=== PATIENT | male | born 1940 | race Caucasian/White ===

== ENCOUNTER 2016-08-11 08:52 | Outpatient (CLI) | payer MEDICARE, MEDICAID | END 2016-08-11 08:53 | disposition home or self-care (01) | DX: E11.9 Type 2 diabetes mellitus without complications (principal) ==

== ENCOUNTER 2017-02-11 09:53 | Outpatient (CLI) | payer MEDICARE, MEDICAID ==
[2017-02-11 10:28] LABS: BASOPHILS # (AUTO) 0.1 10^3/uL (0.0-0.1); BASOPHILS % (AUTO) 0.7 %; EOSINOPHILS # (AUTO) 0.3 10^3/uL (0.0-0.7); EOSINOPHILS % (AUTO) 3.1 %; HCT - HEMATOCRIT 40.3 % (42.0-52.0); HGB - HEMOGLOBIN 13.6 g/dL (14.0-18.0); LYMPHOCYTES # (AUTO) 1.3 10^3/uL (1.5-3.5); LYMPHOCYTES % (AUTO) 13.8 %; MEAN CORPUSCULAR HEMOGLOBIN 29.3 pg (27.0-31.0); MEAN CORPUSCULAR HGB CONC 33.7 g/dL (32.0-36.0); MEAN CORPUSCULAR VOLUME 86.9 fL (80.0-94.0); MEAN PLATELET VOLUME 7.9 fL (7.4-11.4); MONOCYTES # (AUTO) 0.5 10^3/uL (0.0-1.0); MONOCYTES % (AUTO) 4.9 %; NEUTROPHILS # (AUTO) 7.4 10^3/uL (1.5-6.6); NEUTROPHILS % (AUTO) 77.5 %; RED BLOOD COUNT 4.64 10^6/uL (4.70-6.10); RED CELL DISTRIBUTION WIDTH 14.9 % (12.0-15.0); UNCORRECTED WHITE BLOOD COUNT 9.6 x10^3/uL; WHITE BLOOD COUNT 9.6 x10^3/uL (4.8-10.8)
[2017-02-11 10:30] LABS: BILIRUBIN,URINE NEGATIVE (NEGATIVE)
[2017-02-11 10:49] LABS: HEMOGLOBIN A1C 0.59 g/dL
[2017-02-11 10:55] LABS: ALBUMIN/GLOBULIN RATIO 1.3 (1.0-2.2); BILIRUBIN,TOTAL 0.6 mg/dL (0.2-1.0); BUN - BLOOD UREA NITROGEN 22 mg/dL (6-20); CALCIUM 9.3 mg/dL (8.5-10.3); CARBON DIOXIDE - CO2 25 mmol/L (21-32); CHLORIDE 103 mmol/L (101-111); CHOL/HDL RATIO 2.8 (<5.0); CHOLESTEROL 116 mg/dL; CREATININE 1.3 mg/dL (0.6-1.2); GFR - MDRD 54 (>89); GLUCOSE 101 mg/dL (70-100); HDL CHOLESTEROL 41 mg/dL; LDL/HDL RATIO 1.5 (<3.6); POTASSIUM 5.4 mmol/L (3.5-5.0); SODIUM 136 mmol/L (135-145); TOTAL PROTEIN 7.2 g/dL (6.7-8.2); TRIGLYCERIDES 72 mg/dL; VLDL CHOLESTEROL 14 mg/dL
== END 2017-02-11 09:54 | disposition home or self-care (01) ==
LOC: LAB 09:53
PROVIDERS: ATTEND Nurse Practitioner Family
DX: E11.9 Type 2 diabetes mellitus without complications (principal); E78.5 Hyperlipidemia, unspecified
CPT/HCPCS: 36415; 80053; 80061; 81001; 82043; 82570; 83036; 84443; 85025

== ENCOUNTER 2017-04-17 09:19 | Outpatient (CLI) | payer MEDICARE, MEDICAID ==
--- NOTE | 2017-04-17 11:59 | XRAY Report ---
THREE VIEW RIGHT SHOULDER: 04/17/2017 CLINICAL INDICATION: Pain. FINDINGS: Internal and external rotational views and a scapular Y view of the right shoulder demonst rate degenerative changes of the acromioclavicular and glenohumeral joints. There is no evidence of a cute fracture or dislocation. 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 There is a fracture of the right posterior 9th rib incompletely visualized on this examinatio n. No pneumothorax is evident. IMPRESSION: DEGENERATIVE CHANGES IN THE SHOULDER. FRACTURE OF THE POSTERIOR RIGHT 9TH RIB, WITHOUT E VIDENCE OF PNEUMOTHORAX. JOB #: [id number] EXT JOB #:[id number]
== END 2017-04-17 09:20 | disposition home or self-care (01) ==
LOC: DI 09:19
PROVIDERS: ATTEND Nurse Practitioner Family
DX: M19.011 Primary osteoarthritis, right shoulder (principal); S22.31XA Fracture of one rib, right side, initial encounter for closed fracture

== ENCOUNTER 2017-06-25 07:39 | Outpatient (CLI) | payer MEDICARE, MEDICAID ==
--- NOTE | 2017-06-25 12:20 | MRI Report ---
EXAM: RIGHT SHOULDER MRI WITHOUT CONTRAST EXAM DATE: 06/25/2017 08:33 AM. CLINICAL HISTORY: Right shoulder pain. COMPARISON: Right shoulder radiography from 04/17/2017. TECHNIQUE: Multiplanar, multisequence T1-weighted and fluid-sensitive sequences of the shoulder witho ut contrast. Other: None. FINDINGS: Some of the images are slightly degraded due to patient-related motion artifact. Acromioclavicular Region: The acromion is type I. Mild acromioclavicular joint osteoarthritis. The co racoacromial and coracoclavicular ligaments are intact. Trace amount of fluid at the subacromial-subd eltoid bursa. Glenohumeral Region: No subluxation. No effusion or loose bodies. The articular cartilage is unremark able. The superior and middle glenohumeral ligaments are intact. Slight thickening and slight T2 hype rintense signal of the anterior aspect of the inferior glenohumeral ligament complex. Bone Marrow: No fracture, marrow edema or bone lesions. Labrum: The labrum is unremarkable on this nonarthrographic study. Musculature/Rotator Cuff: There is an approximately 5 x 3 mm low-grade partial thickness articular sweeney rface tear at the distal end of the supraspinatus tendon. The tear involves approximately 10% of the tendon thickness at this location. There is an approximately 4 mm AP by 1 mm superior to inferior par tial thickness bursal surface tear at the distal end of the supraspinatus-infraspinatus tendon juncti on which involves approximately 40% of the tendon thickness at this location. The teres minor tendon is unremarkable. There is subscapularis tendinosis. No edema or fatty atrophy. Biceps Tendon: The long head of the biceps tendon and biceps abram are intact. Other: The subcutaneous tissues are unremarkable. IMPRESSION: 1. Slight thickening and slight T2 hyperintense signal of the anterior aspect of the inferior glenohu meral ligament complex which may represent inflammation or injury. 2. Small 5 x 3 mm low-grade partial thickness articular surface tear at the distal end of the suprasp inatus tendon. Small 4 x 1 mm moderate grade partial thickness bursal surface tear at the distal end of the supraspinatus-infraspinatus tendon junction. 3. Mild acromioclavicular joint osteoarthritis. [facility] MUSCULOSKELET[facility] RADIOLOGY SECTION Referring Provider Line: [phone] SITE ID: [id number]
== END 2017-06-25 07:40 | disposition home or self-care (01) ==
LOC: DI 07:39
PROVIDERS: ATTEND Orthopaedic Surgery
DX: M75.101 Unspecified rotator cuff tear or rupture of right shoulder, not specified as traumatic (principal); M19.011 Primary osteoarthritis, right shoulder

== ENCOUNTER 2017-08-17 08:00 | Outpatient (CLI) | payer MEDICARE, MEDICAID ==
[2017-08-17 20:34] LABS: HB2 TOTAL 14.7 g/dL; HEMOGLOBIN A1C 0.62 g/dL
== END 2017-08-17 08:01 | disposition home or self-care (01) ==
LOC: LAB.S 08:00
PROVIDERS: ATTEND Nurse Practitioner Family
DX: E11.9 Type 2 diabetes mellitus without complications (principal)
CPT/HCPCS: 36415; 83036

== ENCOUNTER 2017-08-19 11:32 | Outpatient (CLI) | payer MEDICARE, MEDICAID ==
--- NOTE | 2017-08-19 15:06 | XRAY Report ---
TWO VIEW CHEST: 08/19/2017 COMPARISON: Two view chest 07/17/2010. INDICATION: COPD. TECHNIQUE: Two views. FINDINGS: There are large lung volumes. Otherwise clear lungs. No pneumothorax or pleural effusion. There are remote left rib fractures - healed. Stable cardiomegaly. IMPRESSION: COPD. NO ACUTE FINDINGS. TD: 08/19/2017 15:[facility]
== END 2017-08-19 11:33 | disposition home or self-care (01) ==
LOC: DI.S 11:32
PROVIDERS: ATTEND Nurse Practitioner Family
DX: J44.9 Chronic obstructive pulmonary disease, unspecified (principal)
CPT/HCPCS: 71046; 93005

== ENCOUNTER 2017-08-20 09:56 | Outpatient (CLI) | payer MEDICARE, MEDICAID ==
[2017-08-20 17:34] LABS: BASOPHILS % (AUTO) 0.5 %; EOSINOPHILS # (AUTO) 0.3 10^3/uL (0.0-0.7); EOSINOPHILS % (AUTO) 4.9 %; HGB - HEMOGLOBIN 13.1 g/dL (14.0-18.0); LYMPHOCYTES # (AUTO) 1.4 10^3/uL (1.5-3.5); LYMPHOCYTES % (AUTO) 19.6 %; MEAN CORPUSCULAR HEMOGLOBIN 28.4 pg (27.0-31.0); MEAN CORPUSCULAR HGB CONC 32.4 g/dL (32.0-36.0); MEAN CORPUSCULAR VOLUME 87.9 fL (80.0-94.0); MEAN PLATELET VOLUME 8.4 fL (7.4-11.4); MONOCYTES # (AUTO) 0.5 10^3/uL (0.0-1.0); MONOCYTES % (AUTO) 7.4 %; NEUTROPHILS # (AUTO) 4.7 10^3/uL (1.5-6.6); NEUTROPHILS % (AUTO) 67.6 %; PLT - PLATELET COUNT 213 10^3/uL (130-450); RED CELL DISTRIBUTION WIDTH 14.5 % (12.0-15.0); WHITE BLOOD COUNT 6.9 x10^3/uL (4.8-10.8)
[2017-08-20 17:46] LABS: ALBUMIN 3.9 g/dL (3.2-5.5); ALBUMIN/GLOBULIN RATIO 1.2 (1.0-2.2); BILIRUBIN,TOTAL 0.4 mg/dL (0.2-1.0); CREATININE 1.3 mg/dL (0.6-1.2); TOTAL PROTEIN 7.2 g/dL (6.7-8.2)
== END 2017-08-20 09:57 | disposition home or self-care (01) ==
LOC: LAB.F 09:56
PROVIDERS: ATTEND Nurse Practitioner Family
DX: E11.9 Type 2 diabetes mellitus without complications (principal); D64.9 Anemia, unspecified
CPT/HCPCS: 36415; 80053; 85025

== ENCOUNTER 2017-09-28 06:02 | Inpatient (IN) | payer MEDICARE, MEDICAID ==
[2017-09-28] MEDS ORDERED: ceFAZolin 2 GM/50 ML 2 GM/50 ML BAG IV ONE (06:38)
[2017-09-28] MEDS ORDERED: LACTATED RINGERS 1,000 ML IV ONE ×2 (07:13→08:56)
[2017-09-28] MEDS ORDERED: SODIUM CHLORIDE FLUSH 0.9% 10 ML SYRINGE ONE ×2 (08:04→08:06)
[2017-09-28] MEDS ORDERED: ePHEDrine 50 MG/ML VIAL IVP ONE (08:20)
[2017-09-28] MEDS ORDERED: GLYCOPYRROLATE 1 MG/5 ML VIAL IVP ONE (08:20)
[2017-09-28] MEDS ORDERED: PROPOFOL 200 MG/20 ML VIAL IVP ONE (08:20)
[2017-09-28] MEDS ORDERED: MIDAZOLAM 2 MG/2 ML VIAL IVP ONE (08:20)
[2017-09-28] MEDS ORDERED: LIDOCAINE-MPF 2% 5 ML VIAL IM ONE (08:20)
[2017-09-28] MEDS ORDERED: SUCCINYLCHOLINE 200 MG/10 ML VIAL IVP ONE (08:20)
[2017-09-28] MEDS ORDERED: ONDANSETRON 4 MG/2 ML VIAL IVP ONE (08:20)
[2017-09-28] MEDS ORDERED: NEOSTIGMINE 1 MG/1 ML 10 ML MDV IVP ONE (08:20)
[2017-09-28] MEDS ORDERED: ROCURONIUM 50 MG/5 ML VIAL IVP ONE (08:20)
[2017-09-28] MEDS ORDERED: KETOROLAC 30 MG/ML VIAL IVP ONE (08:20)
[2017-09-28] MEDS ORDERED: DEXAMETHASONE 4 MG/ML VIAL IVP ONE (08:20)
[2017-09-28] MEDS ORDERED: BUPIVACAINE 0.5%-EPI 1:200000 PF 30 ML VIAL SUBQ ONE ×2 (08:30)
[2017-09-28] MEDS ORDERED: BUPIVACAINE 0.5%-EPI 1:200000 PF 30 ML VIAL ONE (08:37)
[2017-09-28] MEDS ORDERED: ALBUTEROL NEB 2.5 MG/3 ML INH ONE (10:38)
[2017-09-28] MEDS ORDERED: ALBUTEROL NEB 2.5 MG/3 ML INH SCH (11:00)
--- NOTE | 2017-09-28 13:18 | XRAY Report ---
FRONTAL CHEST: 09/28/2017 CLINICAL INDICATION: Postop, crackles. COMPARISON: 08/19/2017. FINDINGS: Frontal view of the chest demonstrates a normal cardiac silhouette. There are new right greater than left infiltrates present. No pulmonary vascular congestion is seen. No effusion or pneumothorax is present. IMPRESSION: NEW RIGHT GREATER THAN LEFT INFILTRATES. TD: 09/28/2017 13:17
[2017-09-28] MEDS ORDERED: ONDANSETRON 4 MG/2 ML VIAL IVP PRN (14:25)
[2017-09-28] MEDS ORDERED: SODIUM CHLORIDE FLUSH 0.9% 10 ML SYRINGE IVP PRN (14:25)
[2017-09-28] MEDS ORDERED: IPRATROPIUM/ALBUTEROL 3 ML NEB INH PRN (14:33)
[2017-09-28] MEDS ORDERED: ALBUTEROL NEB 2.5 MG/3 ML INH PRN (14:33)
[2017-09-28 14:38] LABS: BASOPHILS % (AUTO) 0.5 %; HGB - HEMOGLOBIN 12.3 g/dL (14.0-18.0); LYMPHOCYTES # (AUTO) 0.3 10^3/uL (1.5-3.5); LYMPHOCYTES % (AUTO) 3.4 %; MEAN CORPUSCULAR HEMOGLOBIN 29.3 pg (27.0-31.0); MEAN CORPUSCULAR HGB CONC 33.4 g/dL (32.0-36.0); MEAN CORPUSCULAR VOLUME 87.8 fL (80.0-94.0); MONOCYTES # (AUTO) 0.2 10^3/uL (0.0-1.0); MONOCYTES % (AUTO) 2.1 %; NEUTROPHILS # (AUTO) 8.5 10^3/uL (1.5-6.6); PLT - PLATELET COUNT 194 10^3/uL (130-450); RED BLOOD COUNT 4.18 10^6/uL (4.70-6.10); RED CELL DISTRIBUTION WIDTH 14.4 % (12.0-15.0)
--- NOTE | 2017-09-28 14:45 | HISTORY & PHYSICAL EXAMINATION ---
Chief Complaint - Chief Complaint Chief Complaint: difficult to breath History - Past Medical History Cardiovascular: reports: Hypertension, High cholesterol, Arrhythmia Respiratory: reports: COPD, Other Neuro: reports: None Endocrine/Autoimmune: reports: Type 2 diabetes, Other GI: reports: Colon polyps, Hepatitis : reports: Benign prostate hypertrophy, Retention, Nocturia, Frequency HEENT: reports: Chronic vision loss, Other Psych: reports: None Musculoskeletal: reports: Osteoarthritis Derm: reports: None MRSA Hx?: No - Past Surgical History General: reports: Colonoscopy, Other Ortho: reports: Other Meds/Allgy - Home Medications Home Medications: Ambulatory Orders Medication Instructions Recorded Confirmed Aspirin [Aspir 81] 81 mg ORAL DAILY 11/11/13 09/28/17 Losartan [Cozaar] 50 mg ORAL DAILY 11/11/13 09/28/17 amLODIPine [Norvasc] 10 mg ORAL DAILY 11/11/13 09/28/17 Atorvastatin Calcium 40 mg PO QPM 04/22/16 09/28/17 metFORMIN [Glucophage] 500 mg PO BIDWM 04/22/16 09/28/17 Albuterol Sulfate [Proair Hfa 1 - 2 puffs INH Q4H PRN 09/21/17 09/28/17 Inhaler] Doxazosin Mesylate 8 mg PO DAILY PM 09/21/17 09/28/17 Metoprolol Succinate 150 mg PO DAILY 09/21/17 09/28/17 Umeclidinium [place] [Incruse 1 puffs IH DAILY 09/21/17 09/28/17 Ellipta] - Allergies Allergies/Adverse Reactions: Allergies Allergy/AdvReac Type Severity Reaction Status Date / Time No Known Drug Allergies Allergy Verified 09/21/17 10:43 Exam - Vital Signs Vital Signs: Vital Signs x48h Temp Pulse Resp BP Pulse Ox 09/28/17 14:10 36.2 C L 100 16 164/89 H 93 09/28/17 13:30 36.2 C L 86 16 147/82 H 96 09/28/17 13:00 87 18 138/65 H 95 09/28/17 12:30 36.2 C L 82 18 138/65 H 92 09/28/17 11:50 36.1 C L 85 16 132/69 H 93 09/28/17 11:30 36.1 C L 86 16 138/65 H 92 09/28/17 11:00 89 L 04/23/18 10:45 90 L 09/28/17 10:30 91 19 92 09/28/17 10:15 92 09/28/17 10:10 98 09/28/17 10:05 97 09/28/17 10:00 90 L 09/28/17 09:57 92 Conclusion/Plan - Lab Results Fish Bones: 09/28/17 14:33
[2017-09-28 14:55] LABS: ALBUMIN 3.8 g/dL (3.2-5.5); ALBUMIN/GLOBULIN RATIO 1.2 (1.0-2.2); BILIRUBIN,TOTAL 0.4 mg/dL (0.2-1.0); CALCIUM 8.6 mg/dL (8.5-10.3); CREATININE 1.2 mg/dL (0.6-1.2); MAGNESIUM 1.7 mg/dL (1.7-2.8); TOTAL PROTEIN 7.1 g/dL (6.7-8.2)
--- NOTE | 2017-09-28 15:55 | CONSULTATION NOTE ---
Referring Provider Name of Referring Provider:: Dr. Graham Consult Date: 09/28/17 Chief Complaint - Chief Complaint Chief Complaint: difficult to breath History of Present Illness - Admitted From Admitted From:: PACU - History Obtained From History obtained from: pt - History of Present Illness HPI Comment/Other: Mr. Dowling is 77-year-old male, current cigarette smoker with hx of COPD, HTN , DM2, who had right shoulder impingement repair procedure at [id number], developed difficult breath after the procedure. I was called by Dr. Hanna to consult pt for difficult breath. Pt report to me " I am difficult to breath down." Pt denies fever, chill, sickness before procedure, also denies chest pain , palpitation, headache. Pt had 93% Sats at 4 liter of O2. In the physical examination, pt present bilateral wheezing sound at low lobe, right greater than left. pt denies hx of Asthma. I ordered CBC, CMP, CXR to assess the pt. It appears pt has COPD exacerbation or further pneumonia. History - Past Medical History Cardiovascular: reports: Hypertension, High cholesterol, Arrhythmia Respiratory: reports: COPD, Other Neuro: reports: None Endocrine/Autoimmune: reports: Type 2 diabetes, Other GI: reports: Colon polyps, Hepatitis : reports: Benign prostate hypertrophy, Retention, Nocturia, Frequency HEENT: reports: Chronic vision loss, Other Psych: reports: None Musculoskeletal: reports: Osteoarthritis Derm: reports: None MRSA Hx?: No - Past Surgical History General: reports: Colonoscopy, Other Ortho: reports: Other - Substance History Use: Uses substance without health or social issues: Tobacco Dependence: Experiences withdrawal or developed tolerances: Tobacco Meds/Allgy - Home Medications Home Medications: Ambulatory Orders Medication Instructions Recorded Confirmed Aspirin [Aspir 81] 81 mg ORAL DAILY 11/11/13 09/28/17 Losartan [Cozaar] 50 mg ORAL DAILY 11/11/13 09/28/17 amLODIPine [Norvasc] 10 mg ORAL DAILY 11/11/13 09/28/17 Atorvastatin Calcium 40 mg PO QPM 04/22/16 09/28/17 metFORMIN [Glucophage] 500 mg PO BIDWM 04/22/16 09/28/17 Albuterol Sulfate [Proair Hfa 1 - 2 puffs INH Q4H PRN 09/21/17 09/28/17 Inhaler] Doxazosin Mesylate 8 mg PO DAILY PM 09/21/17 09/28/17 Metoprolol Succinate 150 mg PO DAILY 09/21/17 09/28/17 Umeclidinium [place] [Incruse 1 puffs IH DAILY 09/21/17 09/28/17 Ellipta] - Allergies Allergies/Adverse Reactions: Allergies Allergy/AdvReac Type Severity Reaction Status Date / Time No Known Drug Allergies Allergy Verified 09/21/17 10:43 Review of Systems - Constitutional Constitutional: denies: Fatigue, Fever, Chills, Malaise, Weakness, Poor appetite , Diaphoresis, Night sweats - Eyes Eyes: denies: Pain, Irritation, Amaurosis, Blurred vision, Spots in vision, Field loss, Vision loss, Dipolpia - Ears, Nose & Throat Ears, Nose & Throat: denies: Ear pain, Hearing loss, Hearing aids, Tinnitus, Vertigo, Nasal pain, Nasal discharge, Nosebleeds, Nasal obstruction, Nasal congestion, Postnasal drainage, Dentures, Sore throat, Mouth lesions, Bleeding gums - Cardiovascular Cariovascular: denies: Irregular heart rate, Palpitations, Chest pain, Edema, Lightheadedness, Syncope, Exertional dyspnea, Decr. exercise tolerance - Respiratory Respiratory: reports: Wheezing, SOB with exertion. denies: Cough, Sputum production, Snoring, Hemoptysis, Orthopnea, SOB at rest, Apnea, Stridor, Pleuritic pain - Gastrointestinal Gastrointestinal: denies: Abdominal pain, Abdominal distention, Constipation, Diarrhea, Change in bowel habits, Rectal bleeding, Black stools, Bloody stools, Nausea, Vomiting, Bile emesis, Braydon blood emesis, Coffee grounds emesis, Reflux /heartburn, Bloating - Genitourinary Genitourinary: denies: Dysuria, Frequency, Urgency, Hematuria, Incontinence, Flank pain, Nocturia, Urethral discharge - Musculoskeletal Musculoskeletal: denies: Muscle pain, Back pain, Muscle aches, Stiffness, Limited range of motion, Muscle weakness, Gout, Joint pain - Integumentary Integumentary: denies: Rash, Pruritis, Lesions, Dryness, Lumps, Acne, Pigment changes - Neurological Neurological: denies: General weakness, Focal weakness, Numbness, Pre-existing deficit, Abnormal gait, Seizures, Incoordination, Slurred speech - Psychiatric Psychiatric: denies: Depression, Anxiety, Suicidal, Delusions, Hallucinations, Homicidal - Endocrine Endocrine: denies: Polyuria, Polydypsia, Polyphagia, Intolerance to cold - Hematologic/Lymphatic Hematologic/Lymphatic: denies: Anemia, Bruising, Petechiae, Blood clots, Lymphadenopathy, Bleeding tendencies Exam - Vital Signs Reviewed Vital Signs: Yes Vital Signs: Vital Signs x48h Temp Pulse Pulse Resp BP BP Pulse Ox 09/28/17 15:03 36.4 C L 86 16 156/77 H 93 09/28/17 14:40 36.3 C L 84 16 152/80 H 94 09/28/17 14:10 36.2 C L 100 16 164/89 H 93 09/28/17 13:30 36.2 C L 86 16 147/82 H 96 09/28/17 13:00 87 18 138/65 H 95 09/28/17 12:30 36.2 C L 82 18 138/65 H 92 09/28/17 11:50 36.1 C L 85 16 132/69 H 93 09/28/17 11:30 36.1 C L 86 16 138/65 H 92 09/28/17 11:00 89 L 09/28/17 10:45 90 L 09/28/17 10:30 91 19 92 09/28/17 10:15 92 09/28/17 10:10 98 09/28/17 10:05 97 09/28/17 10:00 90 L 09/28/17 09:57 92 - Physical Exam General Appearance: positive: Alert, Mild distress. negative: Lethargic Eyes Bilateral: positive: Normal inspection, PERRL, No lid inflammation, Conjunctivae nml ENT: positive: ENT inspection nml, Pharynx nml, No signs of dehydration. negative: Purulent nasal drainage, Pharyngeal erythema, Oral lesions Neck: positive: Nml inspection, Thyroid nml, No JVD, Trachea midline. negative : Thyromegaly, Lymphadenopathy (R), Lymphadenopathy (L), Stiff neck, Carotid bruit, Swelling/bruising, Tracheal deviation Respiratory: positive: Chest non-tender, No respiratory distress, Wheezes. negative: Rales, Rhonchi Cardiovascular: positive: Regular rate & rhythm, No murmur, No gallop. negative : Irregularly irregular, Extrasystoles, Tachycardia, Bradycardia, Systolic murmur, Diastolic murmur Peripheral Pulses: positive: 2+ Abdomen: positive: Non-tender, No organomegaly, Nml bowel sounds, No distention. negative: Tenderness, Guarding, Rebound Back: positive: Nml inspection. negative: CVA tenderness (R), CVA tenderness (L ) Skin: positive: Color nml, No rash, Warm, Dry. negative: Cyanosis, Diaphoresis , Pallor Extremities: positive: Non-tender, Full ROM. negative: Calf tenderness, Joint swelling, J Luis's sign/cords Neurologic/Psychiatric: positive: Oriented x3, Sensation nml, Mood/affect nml. negative: Weakness, Sensory loss, Facial droop, Slurred/abnml speech, Depressed mood/affect Conclusion/Plan - Diagnosis Diagnosis: COPD exacerbation. 1, order CBC,CMP,CXR, follow up. 2, Duoneb, Albuteral INH Q4H PRN. 3, supplement O2 PRN, consult RT. 4, Solu-medro 30 mg Tid. 5, follow up CXR to see if pt has pneumonia. 6, order EKG since pt has hx of arrhythmia. thank Dr. Graham let us care of this pt. - Lab Results Fish Bones: 09/28/17 14:33 09/28/17 14:33
[2017-09-28 15:57] LABS: HB2 TOTAL 13.3 g/dL; HEMOGLOBIN A1C 0.56 g/dL
[2017-09-28] MEDS ORDERED: cefTRIAXone 1 GM VIAL IVP SCH (16:58)
[2017-09-28] MEDS ORDERED: amLODIPine 5 MG TABLET PO SCH (17:00)
[2017-09-28] MEDS: NICOTINE 14 MG PATCH TOP SCH (17:40)
[2017-09-28] MEDS: SODIUM CHLORIDE 0.9% 1,000 ML IV SCH (17:40)
[2017-09-28] MEDS: METOPROLOL SUCCINATE 50 MG TABLET PO SCH (17:42)
[2017-09-28] MEDS: LOSARTAN 50 MG TABLET PO SCH (17:44)
[2017-09-28] MEDS: AZITHROMYCIN INJ 500 MG in SODIUM CHLORIDE 0.9% 250 ML IV SCH (17:45)
[2017-09-28] MEDS: methylPREDNISolone SUCCINATE 40 MG/ML VIAL IVP SCH ×2 (17:46→21:46)
[2017-09-28] MEDS: INSULIN ASPART 300 UNIT/3 ML PEN SUBQ SCH ×2 (17:55→20:43)
[2017-09-28] MEDS: SODIUM CHLORIDE FLUSH 0.9% 10 ML SYRINGE IVP SCH (17:57)
[2017-09-28] MEDS: cefTRIAXone 1 GM in SODIUM CHLORIDE 0.9% MINIBAG 100 ML IV SCH (19:47)
[2017-09-28] MEDS: ATORVASTATIN 40 MG TABLET PO SCH (20:40)
[2017-09-28] MEDS: FAMOTIDINE 20 MG TABLET PO SCH (20:40)
[2017-09-28] MEDS: DOXAZOSIN 4 MG TABLET PO SCH (20:41)
[2017-09-28] MEDS: amLODIPine 5 MG TABLET PO SCH (20:41)
[2017-09-29] MEDS: SODIUM CHLORIDE FLUSH 0.9% 10 ML SYRINGE IVP SCH ×3 (01:31→16:38)
[2017-09-29 05:20] LABS: BASOPHILS % (AUTO) 0.3 %; HGB - HEMOGLOBIN 11.3 g/dL (14.0-18.0); LYMPHOCYTES # (AUTO) 0.6 10^3/uL (1.5-3.5); MEAN CORPUSCULAR HEMOGLOBIN 28.4 pg (27.0-31.0); MEAN CORPUSCULAR HGB CONC 32.5 g/dL (32.0-36.0); MEAN CORPUSCULAR VOLUME 87.4 fL (80.0-94.0); MEAN PLATELET VOLUME 7.4 fL (7.4-11.4); MONOCYTES # (AUTO) 0.6 10^3/uL (0.0-1.0); MONOCYTES % (AUTO) 5.3 %; NEUTROPHILS # (AUTO) 10.3 10^3/uL (1.5-6.6); NEUTROPHILS % (AUTO) 89.4 %; PLT - PLATELET COUNT 199 10^3/uL (130-450); RED BLOOD COUNT 3.99 10^6/uL (4.70-6.10); RED CELL DISTRIBUTION WIDTH 14.7 % (12.0-15.0); WHITE BLOOD COUNT 11.5 x10^3/uL (4.8-10.8)
[2017-09-29 05:32] LABS: ALBUMIN 3.5 g/dL (3.2-5.5); ALBUMIN/GLOBULIN RATIO 1.3 (1.0-2.2); BILIRUBIN,TOTAL 0.3 mg/dL (0.2-1.0); CALCIUM 8.4 mg/dL (8.5-10.3); TOTAL PROTEIN 6.3 g/dL (6.7-8.2)
[2017-09-29] MEDS: methylPREDNISolone SUCCINATE 40 MG/ML VIAL IVP SCH ×3 (07:07→21:13)
[2017-09-29] MEDS: MORPHINE 2 MG/ML SYRINGE IVP PRN (07:07)
--- NOTE | 2017-09-29 07:40 | PROVIDER PROGRESS NOTE ---
Subjective - General Admit Date: 09/28/17 Procedure Date: 09/28/17 Post Op Days: 1 Procedure Performed: right shouilder jerry, sub acromial decompression. - Other Other Information/Narrative: Right shoulder pain with active motion., Objective - Patient Data Weight: Weight 09/27/17 09/28/17 09/29/17 23:59 23:59 23:59 Weight (kg) 94.3 kg Intake & Output: Intake and Output Totals x24h 09/27/17 09/28/17 09/29/17 23:59 23:59 23:59 Intake Total 356.25 Output Total 700 Balance 356.25 -700 - Lab Results Lab Results: 09/29/17 05:08 09/29/17 05:08 Other Lab Results: Lab Results x24hrs 09/29/17 09/29/17 09/29/17 Range/Units 07:34 05:08 05:08 WBC 11.5 H (4.8-10.8) x10^3/uL RBC 3.99 L (4.70-6.10) 10^6/uL Hgb 11.3 L (14.0-18.0) g/dL Hct 34.9 L (42.0-52.0) % MCV 87.4 (80.0-94.0) fL MCH 28.4 (27.0-31.0) pg MCHC 32.5 (32.0-36.0) g/dL RDW 14.7 (12.0-15.0) % Plt Count 199 (130-450) 10^3/uL MPV 7.4 (7.4-11.4) fL Neut # 10.3 H (1.5-6.6) 10^3/uL Lymph # 0.6 L (1.5-3.5) 10^3/uL Dougherty # 0.6 (0.0-1.0) 10^3/uL Eos # 0.0 (0.0-0.7) 10^3/uL Baso # 0.0 (0.0-0.1) 10^3/uL Absolute Nucleated RBC 0.00 x10^3/uL Nucleated RBC % 0.0 /100WBC Sodium 136 (135-145) mmol/L Potassium 4.5 (3.5-5.0) mmol/L Chloride 104 (101-111) mmol/L Carbon Dioxide 27 (21-32) mmol/L Anion Gap 5.0 L (6-13) BUN 19 (6-20) mg/dL Creatinine 1.0 (0.6-1.2) mg/dL Estimated GFR (MDRD) 73 L (>89) Glucose 141 H (70-100) mg/dL POC Whole Bld Glucose 146 H (70 - 100) mg/dL Glycated Hemoglobin (4.6-6.2) % Estim Average Glucose (70-100) Calcium 8.4 L (8.5-10.3) mg/dL Magnesium (1.7-2.8) mg/dL Total Bilirubin 0.3 (0.2-1.0) mg/dL AST 23 (10-42) IU/L ALT 17 (10-60) IU/L Alkaline Phosphatase 59 (42-121) IU/L Troponin I (<0.49) ng/mL Total Protein 6.3 L (6.7-8.2) g/dL Albumin 3.5 (3.2-5.5) g/dL Globulin 2.8 (2.1-4.2) g/dL Albumin/Globulin Ratio 1.3 (1.0-2.2) 09/28/17 09/28/17 09/28/17 Range/Units 20:24 17:45 16:34 WBC (4.8-10.8) x10^3/uL RBC (4.70-6.10) 10^6/uL Hgb (14.0-18.0) g/dL Hct (42.0-52.0) % MCV (80.0-94.0) fL MCH (27.0-31.0) pg MCHC (32.0-36.0) g/dL RDW (12.0-15.0) % Plt Count (130-450) 10^3/uL MPV (7.4-11.4) fL Neut # (1.5-6.6) 10^3/uL Lymph # (1.5-3.5) 10^3/uL Dougherty # (0.0-1.0) 10^3/uL Eos # (0.0-0.7) 10^3/uL Baso # (0.0-0.1) 10^3/uL Absolute Nucleated RBC x10^3/uL Nucleated RBC % /100WBC Sodium (135-145) mmol/L Potassium (3.5-5.0) mmol/L Chloride (101-111) mmol/L Carbon Dioxide (21-32) mmol/L Anion Gap (6-13) BUN (6-20) mg/dL Creatinine (0.6-1.2) mg/dL Estimated GFR (MDRD) (>89) Glucose (70-100) mg/dL POC Whole Bld Glucose 144 H 151 H (70 - 100) mg/dL Glycated Hemoglobin (4.6-6.2) % Estim Average Glucose (70-100) Calcium (8.5-10.3) mg/dL Magnesium (1.7-2.8) mg/dL Total Bilirubin (0.2-1.0) mg/dL AST (10-42) IU/L ALT (10-60) IU/L Alkaline Phosphatase (42-121) IU/L Troponin I < 0.04 (<0.49) ng/mL Total Protein (6.7-8.2) g/dL Albumin (3.2-5.5) g/dL Globulin (2.1-4.2) g/dL Albumin/Globulin Ratio (1.0-2.2) 09/28/17 09/28/17 09/28/17 Range/Units 14:41 14:33 14:33 WBC (4.8-10.8) x10^3/uL RBC (4.70-6.10) 10^6/uL Hgb (14.0-18.0) g/dL Hct (42.0-52.0) % MCV (80.0-94.0) fL MCH (27.0-31.0) pg MCHC (32.0-36.0) g/dL RDW (12.0-15.0) % Plt Count (130-450) 10^3/uL MPV (7.4-11.4) fL Neut # (1.5-6.6) 10^3/uL Lymph # (1.5-3.5) 10^3/uL Dougherty # (0.0-1.0) 10^3/uL Eos # (0.0-0.7) 10^3/uL Baso # (0.0-0.1) 10^3/uL Absolute Nucleated RBC x10^3/uL Nucleated RBC % /100WBC Sodium 133 L (135-145) mmol/L Potassium 4.0 (3.5-5.0) mmol/L Chloride 98 L (101-111) mmol/L Carbon Dioxide 28 (21-32) mmol/L Anion Gap 7.0 (6-13) BUN 19 (6-20) mg/dL Creatinine 1.2 (0.6-1.2) mg/dL Estimated GFR (MDRD) 59 L (>89) Glucose 158 H (70-100) mg/dL POC Whole Bld Glucose 147 H (70 - 100) mg/dL Glycated Hemoglobin 6.0 (4.6-6.2) % Estim Average Glucose 126 H (70-100) Calcium 8.6 (8.5-10.3) mg/dL Magnesium 1.7 (1.7-2.8) mg/dL Total Bilirubin 0.4 (0.2-1.0) mg/dL AST 23 (10-42) IU/L ALT 18 (10-60) IU/L Alkaline Phosphatase 67 (42-121) IU/L Troponin I (<0.49) ng/mL Total Protein 7.1 (6.7-8.2) g/dL Albumin 3.8 (3.2-5.5) g/dL Globulin 3.3 (2.1-4.2) g/dL Albumin/Globulin Ratio 1.2 (1.0-2.2) 09/28/17 09/28/17 Range/Units 14:33 10:06 WBC 9.0 (4.8-10.8) x10^3/uL RBC 4.18 L (4.70-6.10) 10^6/uL Hgb 12.3 L (14.0-18.0) g/dL Hct 36.7 L (42.0-52.0) % MCV 87.8 (80.0-94.0) fL MCH 29.3 (27.0-31.0) pg MCHC 33.4 (32.0-36.0) g/dL RDW 14.4 (12.0-15.0) % Plt Count 194 (130-450) 10^3/uL MPV 7.0 L (7.4-11.4) fL Neut # 8.5 H (1.5-6.6) 10^3/uL Lymph # 0.3 L (1.5-3.5) 10^3/uL Dougherty # 0.2 (0.0-1.0) 10^3/uL Eos # 0.0 (0.0-0.7) 10^3/uL Baso # 0.0 (0.0-0.1) 10^3/uL Absolute Nucleated RBC 0.00 x10^3/uL Nucleated RBC % 0.0 /100WBC Sodium (135-145) mmol/L Potassium (3.5-5.0) mmol/L Chloride (101-111) mmol/L Carbon Dioxide (21-32) mmol/L Anion Gap (6-13) BUN (6-20) mg/dL Creatinine (0.6-1.2) mg/dL Estimated GFR (MDRD) (>89) Glucose (70-100) mg/dL POC Whole Bld Glucose 142 H (70 - 100) mg/dL Glycated Hemoglobin (4.6-6.2) % Estim Average Glucose (70-100) Calcium (8.5-10.3) mg/dL Magnesium (1.7-2.8) mg/dL Total Bilirubin (0.2-1.0) mg/dL AST (10-42) IU/L ALT (10-60) IU/L Alkaline Phosphatase (42-121) IU/L Troponin I (<0.49) ng/mL Total Protein (6.7-8.2) g/dL Albumin (3.2-5.5) g/dL Globulin (2.1-4.2) g/dL Albumin/Globulin Ratio (1.0-2.2) - Current Medications Current Medications: Current Medications Generic Name Dose Route Start Last Admin Trade Name Freq PRN Reason Stop Dose Admin Amlodipine Besylate 10 mg 09/28/17 17:00 09/28/17 20:41 Norvasc PO 10 mg QPM JAMI Administration Atorvastatin Calcium 40 mg 09/28/17 21:00 09/28/17 20:40 Lipitor PO 40 mg QPM JAMI Administration Doxazosin Mesylate 8 mg 09/28/17 21:00 09/28/17 20:41 Cardura PO 8 mg QPM JAMI Administration Famotidine 20 mg 09/28/17 21:00 09/28/17 20:40 Pepcid PO 20 mg BID JAMI Administration Azithromycin 500 mg/ Sodium 250 mls @ 250 mls/hr 09/28/17 17:00 09/28/17 18: 45 Chloride IV Infused Q24H JAMI Infusion Sodium Chloride 1,000 mls @ 75 mls/hr 09/28/17 17:00 09/28/17 21:45 Normal Saline 0.9% IV 75 mls/hr .[id number] JAMI Infusion Ceftriaxone Sodium 1 gm/ 100 mls @ 200 mls/hr 09/28/17 18:00 09/28/17 20:17 Sodium Chloride IV Infused Q24H JAMI Infusion Insulin Aspart 1 - 5 unit 09/28/17 17:00 09/28/17 20:43 Novolog SUBQ 1 unit 0800,1200,1700,2100 JAMI Administration Protocol Losartan Potassium 50 mg 09/28/17 17:00 09/28/17 17:44 Cozaar PO 50 mg DAILY JAMI Administration Methylprednisolone 30 mg 09/28/17 16:00 09/29/17 07:07 Solu-Medrol (40mg Vial) IVP 30 mg TID JAMI Administration Metoprolol Succinate 150 mg 09/28/17 17:00 09/28/17 17:42 Toprol Xl PO 150 mg DAILY JAMI Administration Morphine Sulfate 2 mg 09/28/17 14:25 09/29/17 07:07 Morphine IVP 2 mg Q2H PRN Administration Pain 8 to 10 Nicotine 1 patch 09/28/17 17:00 09/28/17 17:40 Nicoderm TOP 1 patch DAILY JAMI Administration Sodium Chloride 10 ml 09/28/17 14:25 09/29/17 07:07 Normal Saline Flush 0.9% IVP 10 ml PRN PRN Administration NEEDED PER PROVIDER ORDERS Sodium Chloride 10 ml 09/28/17 17:00 09/29/17 01:31 Normal Saline Flush 0.9% IVP Not Given 0100,0900,1700 JAMI - Physical Exam Comments/Other: NV intact. Dressing with moderate bloody drainage. Impression/Plan - Problem List Problem List: Orthopedically expected course. Will return to apply fresh dressing tomorrow.
--- NOTE | 2017-09-29 10:07 | XRAY Report ---
TWO VIEW CHEST: 09/28/2017 CLINICAL INDICATION: Shortness of breath. COMPARISON: 09/28/2017 at 1203 hours. FINDINGS: The cardiac silhouette is within normal limits. Right greater than left infiltrates persist. No effusion or pneumothorax is seen. IMPRESSION: PERSISTENT RIGHT GREATER THAN LEFT INFILTRATES. TD: 09/29/2017 10:06
[2017-09-29] MEDS: ENOXAPARIN 40 MG/0.4 ML SYRINGE SUBQ SCH (10:30)
[2017-09-29] MEDS: POLYETHYLENE GLYCOL 3350 17 GM PACKET PO SCH (10:30)
[2017-09-29] MEDS: METOPROLOL SUCCINATE 50 MG TABLET PO SCH (10:30)
[2017-09-29] MEDS: FAMOTIDINE 20 MG TABLET PO SCH ×2 (10:30→21:13)
[2017-09-29] MEDS: LOSARTAN 50 MG TABLET PO SCH (10:30)
[2017-09-29] MEDS: NICOTINE 14 MG PATCH TOP SCH (10:30)
[2017-09-29] MEDS: ASPIRIN EC 81 MG TABLET PO SCH (10:31)
[2017-09-29] MEDS: INSULIN ASPART 300 UNIT/3 ML PEN SUBQ SCH ×4 (10:31→21:18)
[2017-09-29] MEDS: SODIUM CHLORIDE 0.9% 1,000 ML IV SCH (10:38)
[2017-09-29] MEDS: ACETAMINOPHEN 325 MG TABLET PO PRN ×2 (13:15→18:24)
--- NOTE | 2017-09-29 14:43 | PROVIDER PROGRESS NOTE ---
Assessment/Plan - Problem List (1) Right lower lobe pneumonia Qualifiers: Aspiration pneumonia type: unspecified Assessment/Plan: As per most recent chest x-ray that was completed on 09/28/17, patient is noted to have bilateral infiltrates right greater than left. The patient had a mild elevation in WBC count from 9.0 upon admission, now up to 11.5. He has not had complaints of a productive cough, although nursing staff has been unable to wean his oxygen at 3L per nasal cannula. He continues to be dependent on tobacco with little interest of quitting. Plan: Treat with ongoing IV antibiotics and repeat labs for AM. Encourage incentive spirometry, IV steroids and nebulizers. (2) Tobacco dependence Assessment/Plan: The patient is noted to be a life long smoker, and denies marijuana use or other inhalants. Plan: Offer nicotine patch and encourage cessation. (3) COPD (chronic obstructive pulmonary disease) Qualifiers: COPD type: COPD with acute lower respiratory infection Qualified Code(s): J44.0 - Chronic obstructive pulmonary disease with acute lower respiratory infection Assessment/Plan: Patient demonstrates moderate COPD disease and is now dependent on oxygen. This may be due to progressive nature of COPD, verses acute PNA. Plan: Continue to treat pneumonia and evaluate for home oxygen upon discharge. (4) Hypertension Qualifiers: Hypertension type: essential hypertension Qualified Code(s): I10 - Essential (primary) hypertension Assessment/Plan: The patient takes losartan, norvasc, metoprolol and doxazosin at home. Plan: Continue current meds, and monitor vital signs. (5) Internal impingement of right shoulder Assessment/Plan: Patient is now post-op for a right shoulder impingement repair. He remains in a sling, and dressings to his anterior right shoulder. Dr. Graham- Orthosurgery is following and managing this. Plan: Continue current treatment as per ortho, treat pain. - Current Meds Current Meds: Current Medications Generic Name Dose Route Start Last Admin Trade Name Freq PRN Reason Stop Dose Admin Acetaminophen 650 mg 09/28/17 14:25 09/29/17 13:15 Tylenol PO 650 mg Q4HR PRN Administration Pain 1 to 4 Amlodipine Besylate 10 mg 09/28/17 17:00 09/28/17 20:41 Norvasc PO 10 mg QPM JAMI Administration Aspirin 81 mg 09/29/17 09:00 09/29/17 10:31 Ecotrin PO 81 mg DAILY JAMI Administration Atorvastatin Calcium 40 mg 09/28/17 21:00 09/28/17 20:40 Lipitor PO 40 mg QPM JAMI Administration Doxazosin Mesylate 8 mg 09/28/17 21:00 09/28/17 20:41 Cardura PO 8 mg QPM JAMI Administration Enoxaparin Sodium 40 mg 09/29/17 09:00 09/29/17 10:30 Lovenox SUBQ 40 mg DAILY JAMI Administration Famotidine 20 mg 09/28/17 21:00 09/29/17 10:30 Pepcid PO 20 mg BID JAMI Administration Azithromycin 500 mg/ Sodium 250 mls @ 250 mls/hr 09/28/17 17:00 09/28/17 18: 45 Chloride IV Infused Q24H JAMI Infusion Sodium Chloride 1,000 mls @ 75 mls/hr 09/28/17 17:00 09/29/17 10:38 Normal Saline 0.9% IV 75 mls/hr .[id number] JAMI Administration Ceftriaxone Sodium 1 gm/ 100 mls @ 200 mls/hr 09/28/17 18:00 09/28/17 20:17 Sodium Chloride IV Infused Q24H JAMI Infusion Insulin Aspart 1 - 5 unit 09/28/17 17:00 09/29/17 13:18 Novolog SUBQ Not Given 0800,1200,1700,2100 [facility] Protocol Losartan Potassium 50 mg 09/28/17 17:00 09/29/17 10:30 Cozaar PO 50 mg DAILY JAMI Administration Methylprednisolone 30 mg 09/28/17 16:00 09/29/17 14:34 Solu-Medrol (40mg Vial) IVP 30 mg TID JAMI Administration Metoprolol Succinate 150 mg 09/28/17 17:00 09/29/17 10:30 Toprol Xl PO 150 mg DAILY JAMI Administration Morphine Sulfate 2 mg 09/28/17 14:25 09/29/17 07:07 Morphine IVP 2 mg Q2H PRN Administration Pain 8 to 10 Nicotine 1 patch 09/28/17 17:00 09/29/17 10:30 Nicoderm TOP Not Given DAILY JAMI Polyethylene Glycol 17 gm 09/29/17 09:00 09/29/17 10:30 Miralax PO 17 gm DAILY JAMI Administration Sodium Chloride 10 ml 09/28/17 14:25 09/29/17 07:07 Normal Saline Flush 0.9% IVP 10 ml PRN PRN Administration NEEDED PER PROVIDER ORDERS Sodium Chloride 10 ml 09/28/17 17:00 09/29/17 09:56 Normal Saline Flush 0.9% IVP Not Given 0100,0900,1700 JAMI - Lab Result Lab results reviewed: Yes Fish Bone Diagrams: 09/29/17 05:08 09/29/17 05:08 - EKG Results EKG Interpreted Independently: Yes - Diagnostic Imaging Results Diagnostic Imaging Results: Final report reviewed Diagnostic Imaging Results Comments: TWO VIEW CHEST: 09/28/2017 CLINICAL INDICATION: Shortness of breath. COMPARISON: 09/28/2017 at 1203 hours. FINDINGS: The cardiac silhouette is within normal limits. Right greater than left infiltrates persist. No effusion or pneumothorax is seen. IMPRESSION: PERSISTENT RIGHT GREATER THAN LEFT INFILTRATES. - Additional Planning Condition/Complexity: Stable My Orders: My Active Orders 09/29/17 CUL, RESPIRATORY [RM] Routine 09/29/17 14:10 Admit [Admit \ Transfer \ Status] [RC] .ONCE Consult/Specialty: Surgery Plan Discussed with:: Patient Time Spent: 15-30 minutes Subjective - Subjective Patient Reports: No Complaints (Patient states he would rather be at home.) Nursing Reports: No Complaints Objective Vital Signs: Vital Signs - 24 hr 09/28/17 09/28/17 09/29/17 15:03 16:15 07:30 Temperature 36.4 C L 36.5 C Heart Rate 92 Heart Rate [ 86 82 Brachial] Respiratory 16 16 18 Rate Blood Pressure 156/77 H 158/82 H [Left Brachial artery] O2 Saturation 93 95 Oxygen O2 Source Nasal cannula I&O (Last 24 Hrs): Intake and Output Totals x24h 09/27/17 09/28/17 09/29/17 23:59 23:59 23:59 Intake Total 356.25 1746.25 Output Total 700 Balance 356.25 1046.25 General: Alert, Oriented x3, Cooperative HEENT: Atraumatic, PERRLA Neck: Supple, No JVD Lymphatic: no adenopathy, axilla node tender (R) Neuro: Alert, CN 2-12 Grossly Intact, Oriented Times 3 Cardiovascular: Regular rate, Normal S1, Normal S2 Respiratory: Chest non-tender, Wheezes, Rhonchi (more rhonchi in lower right lung base.) Abdomen: Normal bowel sounds, Soft, No tenderness, No masses Extremities: No clubbing, No cyanosis, No edema, No tenderness/swelling Skin: No rashes, No breakdown, No significant lesion - Results Results: Laboratory Results WBC 11.5 x10^3/uL (4.8-10.8) H 09/29/17 05:08 RBC 3.99 10^6/uL (4.70-6.10) L 09/29/17 05:08 Hgb 11.3 g/dL (14.0-18.0) L 09/29/17 05:08 Hct 34.9 % (42.0-52.0) L 09/29/17 05:08 MCV 87.4 fL (80.0-94.0) 09/29/17 05:08 MCH 28.4 pg (27.0-31.0) 09/29/17 05:08 MCHC 32.5 g/dL (32.0-36.0) 09/29/17 05:08 RDW 14.7 % (12.0-15.0) 09/29/17 05:08 Plt Count 199 10^3/uL (130-450) 09/29/17 05:08 MPV 7.4 fL (7.4-11.4) 09/29/17 05:08 Neut # 10.3 10^3/uL (1.5-6.6) H 09/29/17 05:08 Lymph # 0.6 10^3/uL (1.5-3.5) L 09/29/17 05:08 [place] # 0.6 10^3/uL (0.0-1.0) 09/29/17 05:08 Eos # 0.0 10^3/uL (0.0-0.7) 09/29/17 05:08 Baso # 0.0 10^3/uL (0.0-0.1) 09/29/17 05:08 Absolute Nucleated RBC 0.00 x10^3/uL 09/29/17 05:08 Nucleated RBC % 0.0 /100WBC 09/29/17 05:08 Sodium 136 mmol/L (135-145) 09/29/17 05:08 Potassium 4.5 mmol/L (3.5-5.0) 09/29/17 05:08 Chloride 104 mmol/L (101-111) 09/29/17 05:08 Carbon Dioxide 27 mmol/L (21-32) 09/29/17 05:08 Anion Gap 5.0 (6-13) L 09/29/17 05:08 BUN 19 mg/dL (6-20) 09/29/17 05:08 Creatinine 1.0 mg/dL (0.6-1.2) 09/29/17 05:08 Estimated GFR (MDRD) 73 (>89) L 09/29/17 05:08 Glucose 141 mg/dL (70-100) H 09/29/17 05:08 POC Whole Bld Glucose 146 mg/dL (70 - 100) H 09/29/17 07:34 Glycated Hemoglobin 6.0 % (4.6-6.2) 09/28/17 14:33 Estim Average Glucose 126 (70-100) H 09/28/17 14:33 Calcium 8.4 mg/dL (8.5-10.3) L 09/29/17 05:08 Magnesium 1.7 mg/dL (1.7-2.8) 09/28/17 14:33 Total Bilirubin 0.3 mg/dL (0.2-1.0) 09/29/17 05:08 AST 23 IU/L (10-42) 09/29/17 05:08 ALT 17 IU/L (10-60) 09/29/17 05:08 Alkaline Phosphatase 59 IU/L (42-121) 09/29/17 05:08 Troponin I < 0.04 ng/mL (<0.49) 09/28/17 17:45 Total Protein 6.3 g/dL (6.7-8.2) L 09/29/17 05:08 Albumin 3.5 g/dL (3.2-5.5) 09/29/17 05:08 Globulin 2.8 g/dL (2.1-4.2) 09/29/17 05:08 Albumin/Globulin Ratio 1.3 (1.0-2.2) 09/29/17 05:08
[2017-09-29] MEDS: AZITHROMYCIN INJ 500 MG in SODIUM CHLORIDE 0.9% 250 ML IV SCH (16:37)
[2017-09-29] MEDS: cefTRIAXone 1 GM in SODIUM CHLORIDE 0.9% MINIBAG 100 ML IV SCH (18:24)
[2017-09-29] MEDS: amLODIPine 5 MG TABLET PO SCH (21:13)
[2017-09-29] MEDS: DOXAZOSIN 4 MG TABLET PO SCH (21:13)
[2017-09-29] MEDS: ATORVASTATIN 40 MG TABLET PO SCH (21:13)
[2017-09-30] MEDS: MORPHINE 2 MG/ML SYRINGE IVP PRN (00:02)
[2017-09-30] MEDS: SODIUM CHLORIDE 0.9% 1,000 ML IV SCH ×2 (01:15→13:38)
[2017-09-30 04:43] LABS: BASOPHILS # (AUTO) 0.1 10^3/uL (0.0-0.1); BASOPHILS % (AUTO) 0.4 %; HGB - HEMOGLOBIN 11.6 g/dL (14.0-18.0); LYMPHOCYTES # (AUTO) 0.8 10^3/uL (1.5-3.5); LYMPHOCYTES % (AUTO) 6.3 %; MEAN CORPUSCULAR HEMOGLOBIN 29.3 pg (27.0-31.0); MEAN CORPUSCULAR HGB CONC 33.6 g/dL (32.0-36.0); MEAN CORPUSCULAR VOLUME 87.2 fL (80.0-94.0); MEAN PLATELET VOLUME 7.8 fL (7.4-11.4); MONOCYTES # (AUTO) 0.5 10^3/uL (0.0-1.0); MONOCYTES % (AUTO) 4.3 %; PLT - PLATELET COUNT 192 10^3/uL (130-450); RED BLOOD COUNT 3.97 10^6/uL (4.70-6.10); RED CELL DISTRIBUTION WIDTH 14.8 % (12.0-15.0); WHITE BLOOD COUNT 12.3 x10^3/uL (4.8-10.8)
[2017-09-30 04:50] LABS: ALBUMIN 3.5 g/dL (3.2-5.5); ALBUMIN/GLOBULIN RATIO 1.2 (1.0-2.2); BILIRUBIN,TOTAL 0.3 mg/dL (0.2-1.0); CALCIUM 8.5 mg/dL (8.5-10.3); TOTAL PROTEIN 6.5 g/dL (6.7-8.2)
[2017-09-30] MEDS: methylPREDNISolone SUCCINATE 40 MG/ML VIAL IVP SCH ×2 (06:45→13:43)
[2017-09-30] MEDS: SODIUM CHLORIDE FLUSH 0.9% 10 ML SYRINGE IVP SCH ×2 (06:47→13:43)
[2017-09-30 07:34] VITALS: BP 177/81
[2017-09-30] MEDS: POLYETHYLENE GLYCOL 3350 17 GM PACKET PO SCH (09:34)
[2017-09-30] MEDS: NICOTINE 14 MG PATCH TOP SCH (09:34)
[2017-09-30] MEDS: FAMOTIDINE 20 MG TABLET PO SCH (09:34)
[2017-09-30] MEDS: ASPIRIN EC 81 MG TABLET PO SCH (09:34)
[2017-09-30] MEDS: LOSARTAN 50 MG TABLET PO SCH (09:34)
[2017-09-30] MEDS: METOPROLOL SUCCINATE 50 MG TABLET PO SCH (09:34)
[2017-09-30] MEDS: INSULIN ASPART 300 UNIT/3 ML PEN SUBQ SCH ×2 (09:35→11:37)
[2017-09-30] MEDS: ENOXAPARIN 40 MG/0.4 ML SYRINGE SUBQ SCH (09:35)
--- NOTE | 2017-09-30 11:38 | Discharge Plan ---
Discharge Plan Disposition: Home, Self Care Condition: Good Prescriptions: Albuterol Sulfate [Proventil Hfa Inhaler] 1 - 2 puffs INH Q4H PRN #1 inhaler PRN Reason: Shortness Of Air/Wheezing Amoxicillin 1,000 mg PO TID 10 Days #60 capsule Azithromycin 500 mg PO DAILY 10 Days #10 tablet Budesonide/Formoterol Fumarate [Symbicort 160-4.5 Mcg Inhaler] 10.2 gm IH DAILY #1 hfa.aer.ad Guaifenesin [Mucinex] 600 mg PO BID #40 tab.er.12h Nicotine 14 mg Patch [Nicoderm] 1 patch TOP DAILY 14 Days #14 patch oxyCODONE/ACET 5/325 [Percocet 5 mg/325 mg] 1 each PO Q4H PRN #42 tablet PRN Reason: Pain Prednisone 10 mg PO DAILY #29 tab.ds.pk Diet: Regular Activity Restrictions: Activity as Tolerated Shower Restrictions: No Driving Restrictions: Yes Weight Bearing: Full Weight Instruction Topics: Dextromethorphan Guaifenesin capsules and ER tablets, Azithromycin tablets, Amoxicillin capsules or tablets, Pneumonia Additional Instructions or Follow Up instructions: You originally came into the hospital for a right shoulder impingement repair. You developed pneumonia and required oxygen. A walking oxygen saturation test was completed and is pending. You should continue your antibiotics and see your PCP within one week. Rest when you are tired. If you qualify for home oxygen, you should NEVER smoke while using. No Smoking: If you smoke, Please STOP! Call for help. Follow-up with: Simi Clarke ARNP [Primary Care Provider] -
--- NOTE | 2017-09-30 13:19 | DISCHARGE SUMMARY ---
Discharge Summary Admit Date: 09/28/17 Discharge Date: 09/30/17 Discharging Provider: RADHA Oquendo Primary Care Provider: RADHA Pérez Code Status: Attempt Resuscitation Condition at Discharge: Good Discharge Disposition: 01 Home, Self Care - DIAGNOSES Admission Diagnoses: Chronic obstructive pulmonary disease with (acute) exacerbation (J44.1) Essential (primary) hypertension (I10) Type 2 diabetes mellitus without complications (E11.9) Nicotine dependence, unspecified, uncomplicated (F17.200) Discharge Diagnoses with Status of Each Condition: COPD exacerbation (J44.1)- chronic, stable, home oxygen prescribed. COPD (J44.9)- chronic, stable. HTN (hypertension) (I10)- chronic, stable. DM2 (diabetes mellitus, type 2) (E11.9)- chronic, stable. Tobacco dependence (F17.200)- chronic, encouraged cessation. Right lower lobe pneumonia (J18.1)- new on this admit, treatment to continue. Internal impingement of right shoulder (M75.41)- chronic, now post-op. 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 He was admitted directly for a repair of his right shoulder by orthopedic surgery. Unfortunately, he developed a post -op complication of pneumonia and required oxygen. The hospitalist service was consulted to manage medically. - HOSPITAL COURSE Hospital Course: The following diagnoses were prevalent during this hospital stay: (1) Right lower lobe pneumonia- As per most recent chest x-ray that was completed on 09/28/17, patient is noted to have bilateral infiltrates right greater than left. The patient had a mild elevation in WBC count from 9.0 upon admission, now up to 11.5. He has not had complaints of a productive cough, although nursing staff has been unable to wean his oxygen at 3L per nasal cannula. He continues to be dependent on tobacco with little interest of quitting. The patient was treated with ongoing IV antibiotics that were transitioned to PO form for an additional 10 days, with a probiotic for a preventative. The patient was encouraged to use incentive spirometry, was given IV steroids with a Prednisone taper and nebulizers that were switched to home dosed inhalers. (2) Tobacco dependence- The patient is noted to be a life long smoker, and denies marijuana use or other inhalants. The patient was offered nicotine patch and encouraged cessation, but states that he can do it on his own. (3) COPD (chronic obstructive pulmonary disease)- Patient demonstrates moderate COPD disease and is now dependent on oxygen. This may be due to progressive nature of COPD, verses acute PNA. The patient was treated for pneumonia and it was determined that the patient should use supplemental oxygen with ambulation. A [id number] exam was completed and resuluts of his walking oxygen saturation test were explained. The patient was hypoxic with ambulation , on room air with an oxygen saturation of 86%, with exertion on 3 liters his oxygen saturation were 91% at 200 feet. I am ordering home oxygen at 3L per nasal cannula with ambulation to treat his long standing COPD. He was reminded and encouraged to quit smoking, but denies the use of a nicotine patch. (4) Hypertension- The patient takes losartan, norvasc, metoprolol and doxazosin at home. The patient was continued on current home meds, and his monitor vital signs were monitored. (5) Internal impingement of right shoulder- Patient is post-op for a right shoulder impingement repair. He remains in a sling, and dressings to his anterior right shoulder. Dr. Graham- Orthosurgery is following and managing this. The patient was informed of necessary ortho follow ups and treated pain. Disposition: The patient was discharged home with prescribed oxygen and prescriptions were sent to the pharmacy of choice. He was transported via private car. - ALLERGIES Allergies/Adverse Reactions: Allergies Allergy/AdvReac Type Severity Reaction Status Date / Time No Known Drug Allergies Allergy Verified 09/21/17 10:43 - MEDICATIONS Home Medications: Ambulatory Orders Medication Instructions Recorded Confirmed Aspirin [Aspir 81] 81 mg ORAL DAILY 11/11/13 09/28/17 Losartan [Cozaar] 50 mg ORAL DAILY 11/11/13 09/28/17 amLODIPine [Norvasc] 10 mg ORAL DAILY 11/11/13 09/28/17 Atorvastatin Calcium 40 mg PO QPM 04/22/16 09/28/17 metFORMIN [Glucophage] 500 mg PO BIDWM 04/22/16 09/28/17 Albuterol Sulfate [Proair Hfa 1 - 2 puffs INH Q4H PRN 09/21/17 09/28/17 Inhaler] Doxazosin Mesylate 8 mg PO DAILY PM 09/21/17 09/28/17 Metoprolol Succinate 150 mg PO DAILY 09/21/17 09/28/17 Umeclidinium [place] [Incruse 1 puffs IH DAILY 09/21/17 09/28/17 Ellipta] Albuterol Sulfate [Proventil Hfa 1 - 2 puffs INH Q4H PRN #1 inhaler 09/30/17 Inhaler] Amoxicillin 1,000 mg PO TID 10 Days #60 capsule 09/30/17 Azithromycin 500 mg PO DAILY 10 Days #10 tablet 09/30/17 Budesonide/Formoterol Fumarate 10.2 gm IH DAILY #1 hfa.aer.ad 09/30/17 [Symbicort 160-4.5 Mcg Inhaler] Guaifenesin [Mucinex] 600 mg PO BID #40 tab.er.12h 09/30/17 Nicotine 14 mg Patch [Nicoderm] 1 patch TOP DAILY 14 Days #14 patch 09/30/17 Prednisone 10 mg PO DAILY #29 tab.ds.pk 09/30/17 - PHYSICAL EXAM AT DISCHARGE General Appearance: positive: No acute distress, Alert, Mild distress Eyes Bilateral: positive: PERRL, EOMI ENT: positive: Pharynx nml, No signs of dehydration Neck: positive: Nml inspection, Thyroid nml Respiratory: positive: Chest non-tender, No respiratory distress, Wheezes, Rhonchi Cardiovascular: positive: Regular rate & rhythm, No gallop Peripheral Pulses: positive: 1+ Abdomen: positive: Non-tender, No organomegaly, Nml bowel sounds, No distention Back: positive: Nml inspection Skin: positive: No rash, Warm, Dry Extremities: positive: Non-tender, Pedal edema (mild, dependent. Right shoulder in a sling d/t surgery.) Neurologic/Psychiatric: positive: Oriented x3, CN's nml (2-12), Motor nml, Sensation nml Reflexes: Bicep (R): 0, Bicep (L): 3+ - LABS Result Diagrams: 09/30/17 04:30 09/30/17 04:30 - DIAGNOSTIC IMAGING Diagnostic Imaging Results: Final report reviewed Diagnostic Imaging Results Comments: FRONTAL CHEST: 09/28/2017 CLINICAL INDICATION: Postop, crackles. COMPARISON: 08/19/2017. FINDINGS: Frontal view of the chest demonstrates a normal cardiac silhouette. There are new right greater than left infiltrates present. No pulmonary vascular congestion is seen. No effusion or pneumothorax is present. IMPRESSION: NEW RIGHT GREATER THAN LEFT INFILTRATES. - FOLLOW UP Follow Up: Patient Name: SARAH DOWLING Date of : 1940 Patient Status: Inpatient Attending Provider: Rosetta Ng Date: 09/30/17 11:36 Initialization Date: 09/30/17 11:36 Discharge Plan Disposition: Home, Self Care Condition: Good Prescriptions: Albuterol Sulfate [Proventil Hfa Inhaler] 1 - 2 puffs INH Q4H PRN #1 inhaler PRN Reason: Shortness Of Air/Wheezing Amoxicillin 1,000 mg PO TID 10 Days #60 capsule Azithromycin 500 mg PO DAILY 10 Days #10 tablet Budesonide/Formoterol Fumarate [Symbicort 160-4.5 Mcg Inhaler] 10.2 gm IH DAILY #1 hfa.aer.ad Guaifenesin [Mucinex] 600 mg PO BID #40 tab.er.12h Nicotine 14 mg Patch [Nicoderm] 1 patch TOP DAILY 14 Days #14 patch Prednisone 10 mg PO DAILY #29 tab.ds.pk Diet: Regular Activity Restrictions: Activity as Tolerated Shower Restrictions: No Driving Restrictions: Yes Weight Bearing: Full Weight Additional Instructions or Follow Up instructions: You originally came into the hospital for a right shoulder impingement repair. You developed pneumonia and required oxygen. A walking oxygen saturation test was completed and is pending. You should continue your antibiotics and see your PCP within one week. Rest when you are tired. If you qualify for home oxygen, you should NEVER smoke while using. - TIME SPENT Time Spent in Discharge (Minutes): 60
--- NOTE | 2017-10-05 10:55 | OPERATIVE REPORT ---
DATE OF SERVICE: 09/28/2017 Physician: Thor Armstrong MD PLEASE SEE BLANK BELOW - REMOVE THIS FLAG BEFORE SIGNING PREOPERATIVE DIAGNOSES 1. Right shoulder acromioclavicular arthritis with impingement. 2. Subacromial impingement syndrome. POSTOPERATIVE DIAGNOSES 1. Right shoulder acromioclavicular arthritis with impingement. 2. Subacromial impingement syndrome. PROCEDURES PERFORMED 1. Right shoulder Rico procedure. 2. Right shoulder subacromial decompression. SURGEON: Thor Armstrong MD TIMBER GIRDLER: None. ANESTHESIA: General LMA. INDICATIONS FOR PROCEDURE: This man had this shoulder pain for some time. Diagnostics and MRI scan seemed to indicate the 2 problems as above. He did not have a significant rotator cuff tear. DESCRIPTION OF PROCEDURE: Patient was brought into the operating room and placed on the operating table. It was arranged to allow a semi-beachchair position. Care was taken to make sure his knees were flexed. Head positioner was utilized. Patient was placed under adequate general anesthetic. The right shoulder region was prepped and sterilely draped in the usual fashion. A timeout was held to identify patient, site and procedure. Rico procedure was performed first. Some 0.25% Marcaine with epinephrine was used to infiltrate the skin. A longitudinal incision was then made, centered a little bit of the AC joint. This was carried down from the superior position to the top of the clavicle and AC joint. The joint was moderately enlarged superficially and was known to be enlarged deep by MRI scan. Soft tissues were stripped off the distal clavicle. Incision was made in the AC capsule. A small oscillating saw was used to cut about 1.5 cm of distal clavicle off. This was gradually removed from the wound by working around and stripping soft tissues off the distal end. There was a small spur on the acromion. A bone rasp was gotten underneath this and with pulling motion, stripped the spur off. Irrigation by normal saline was done throughout the procedure and at this point. Small bleeders were electrocauterized. Then, 2-0 PDS suture with [id number] technique was used to close the tissues that had been superficial to the clavicular piece before it was removed. This was used to close this entire tunnel down to and including the joint capsule. Some 3-0 PDS suture was used to reapproximate subcutaneous tissue. A running 3- 0 Prolene subcuticular stitch was then used to close the skin. Attention was then directed to the second portion of the procedure. A short sagittal plane incision was made, centered over the anterolateral edge of the acromion. This was carried down through the subcutaneous tissue with electrocautery. The fascia of the deltoid was identified. The skin was spread and the instrument could then be introduced into the deltoid, spreading muscle down to its inner fascia. This muscle was then pushed back and traced on up to the acromion and with some spreading at that point. Scalpel was then used to cut the deep fascia of the deltoid, and immediately the bursa and/or rotator cuff was visualized. A small retractor was gotten into this space, and an adequate opening was obtained to view the lateral acromion in its anterior portion. No attempt was made to cut the coracoacromial ligament. The 3/8-inch osteotome was then used to cut off the undersurface of the acromion. The rasp was used to pull bone from the small enlargement at the insertion of the ligament. A rasp could be gotten deep and smoothed off the undersurface of the acromion. I could introduce a digit and found no loose fragments. The wound was irrigated with normal saline. The shoulder was taken through a range of motion, and the rotator cuff was visually intact. PDS 2-0 suture was used to reapproximate the deep fascia of the deltoid. PDS 3- 0 was then utilized to close the superficial fascia, which was quite thin. The most proximal of these sutures was then brought through the tissue on the acromion to seal that small gap. Subcutaneous tissue was reapproximated with 3-0 PDS sutures. Skin was closed with a running 3-0 Prolene subcuticular stitch. This was reinforced with Steri-Strips, as was the superior clavicular wound. Sterile bandage was applied to both. Patient was then awakened, placed on the recovery bed, and taken to the recovery room in good condition, having tolerated the procedure well, with perhaps 100 mL blood loss. TD: 10/02/2017 13:32 DAYNA
== END 2017-09-30 14:45 | disposition home or self-care (01) | DRG 166 ==
LOC: SDS 06:02 → OBS 14:25 → OBSVTOIN 09-29 14:10 → MS3 09-29 14:26
PROVIDERS: ADMIT Nurse Practitioner Gerontology; ATTEND Nurse Practitioner
PROC: 0RNJ0ZZ Release Right Shoulder Joint, Open Approach (ICD-10-PCS; 2017-09-28)
PROC: 0PB90ZZ Excision of Right Clavicle, Open Approach (ICD-10-PCS; principal; 2017-09-28 07:30)
DX: J95.89 Other postprocedural complications and disorders of respiratory system, not elsewhere classified (principal); J15.5 Pneumonia due to Escherichia coli; J44.0 Chronic obstructive pulmonary disease with (acute) lower respiratory infection; J44.1 Chronic obstructive pulmonary disease with (acute) exacerbation; Y83.9 Surgical procedure, unspecified as the cause of abnormal reaction of the patient, or of later complication, without mention of misadventure at the time of the procedure; Y92.234 Operating room of hospital as the place of occurrence of the external cause; E78.00 Pure hypercholesterolemia, unspecified; M75.41 Impingement syndrome of right shoulder; M19.011 Primary osteoarthritis, right shoulder; F17.210 Nicotine dependence, cigarettes, uncomplicated; I10 Essential (primary) hypertension; E11.9 Type 2 diabetes mellitus without complications; F10.11 Alcohol abuse, in remission; E78.5 Hyperlipidemia, unspecified; M17.0 Bilateral primary osteoarthritis of knee; N40.1 Benign prostatic hyperplasia with lower urinary tract symptoms; R33.8 Other retention of urine; R35.0 Frequency of micturition; R35.1 Nocturia; H91.90 Unspecified hearing loss, unspecified ear; Z79.82 Long term (current) use of aspirin; Z79.51 Long term (current) use of inhaled steroids; Z79.899 Other long term (current) drug therapy; Z86.010 Personal history of colon polyps; Z86.19 Personal history of other infectious and parasitic diseases; Z99.81 Dependence on supplemental oxygen
CPT/HCPCS: 23120; 23130; G0378; 36415; 71045; 71046; 80053; 83036; 83735; 84484; 85025; 87040; 87070; 87077; 87205; 93005; 94640; 94761; 96361; 96365; 96367; 96372; 96375; 96376

== ENCOUNTER 2018-02-25 08:21 | Outpatient (CLI) | payer MEDICARE, MEDICAID ==
[2018-02-25 10:19] LABS: BASOPHILS # (AUTO) 0.1 10^3/uL (0.0-0.1); BASOPHILS % (AUTO) 0.7 %; EOSINOPHILS # (AUTO) 0.3 10^3/uL (0.0-0.7); EOSINOPHILS % (AUTO) 3.9 %; HGB - HEMOGLOBIN 13.3 g/dL (14.0-18.0); LYMPHOCYTES # (AUTO) 1.3 10^3/uL (1.5-3.5); LYMPHOCYTES % (AUTO) 16.3 %; MEAN CORPUSCULAR HEMOGLOBIN 29.3 pg (27.0-31.0); MEAN CORPUSCULAR HGB CONC 34.3 g/dL (32.0-36.0); MEAN CORPUSCULAR VOLUME 85.6 fL (80.0-94.0); MEAN PLATELET VOLUME 8.3 fL (7.4-11.4); MONOCYTES # (AUTO) 0.6 10^3/uL (0.0-1.0); MONOCYTES % (AUTO) 7.5 %; NEUTROPHILS # (AUTO) 5.5 10^3/uL (1.5-6.6); NEUTROPHILS % (AUTO) 71.6 %; PLT - PLATELET COUNT 193 10^3/uL (130-450); RED BLOOD COUNT 4.53 10^6/uL (4.70-6.10); RED CELL DISTRIBUTION WIDTH 15.6 % (12.0-15.0); WHITE BLOOD COUNT 7.7 x10^3/uL (4.8-10.8)
[2018-02-25 10:35] LABS: ALBUMIN/GLOBULIN RATIO 1.3 (1.0-2.2); ALKALINE PHOSPHATASE 69 IU/L (42-121); ALT ALANINE AMINOTRANSFERASE 17 IU/L (10-60); AST ASPARTATE AMINOTRANSFERASE 19 IU/L (10-42); BILIRUBIN,TOTAL 0.5 mg/dL (0.2-1.0); BUN - BLOOD UREA NITROGEN 19 mg/dL (6-20); CALCIUM 9.2 mg/dL (8.5-10.3); CARBON DIOXIDE - CO2 29 mmol/L (21-32); CHLORIDE 101 mmol/L (101-111); CHOLESTEROL 119 mg/dL; CREATININE 1.3 mg/dL (0.6-1.2); GFR - MDRD 54 (>89); GLUCOSE 112 mg/dL (70-100); HDL CHOLESTEROL 40 mg/dL; LDL CHOLESTEROL,CALCULATED 67 mg/dL; LDL/HDL RATIO 1.7 (<3.6); SODIUM 137 mmol/L (135-145); TOTAL PROTEIN 7.2 g/dL (6.7-8.2); VLDL CHOLESTEROL 12 mg/dL
[2018-02-25 11:59] LABS: HB2 TOTAL 14.2 g/dL; HEMOGLOBIN A1C 0.61 g/dL; HEMOGLOBIN A1C % 6.1 % (4.6-6.2)
== END 2018-02-25 08:22 | disposition home or self-care (01) ==
LOC: LAB.F 08:21
PROVIDERS: ATTEND Nurse Practitioner Family
DX: I10 Essential (primary) hypertension (principal); E78.5 Hyperlipidemia, unspecified; E11.9 Type 2 diabetes mellitus without complications
CPT/HCPCS: 36415; 80053; 80061; 82043; 83036; 83721; 84443; 85025

== ENCOUNTER 2018-03-23 09:14 | Outpatient (CLI) | payer MEDICARE, MEDICAID | END 2018-03-23 09:15 | disposition home or self-care (01) | LOC: LAB.R 09:14 | PROVIDERS: ATTEND Nurse Practitioner Family | DX: D64.9 Anemia, unspecified (principal) | CPT/HCPCS: 82270 ==

== ENCOUNTER 2018-09-21 09:13 | Outpatient (CLI) | payer MEDICARE, MEDICAID ==
[2018-09-21 19:20] LABS: HB2 TOTAL 14.4 g/dL; HEMOGLOBIN A1C 0.62 g/dL; HEMOGLOBIN A1C % 6.1 % (4.6-6.2)
== END 2018-09-21 09:14 | disposition home or self-care (01) ==
LOC: LAB.F 09:13
PROVIDERS: ATTEND Nurse Practitioner Family
DX: E11.9 Type 2 diabetes mellitus without complications (principal)
CPT/HCPCS: 36415; 83036

== ENCOUNTER 2019-04-13 09:19 | Outpatient (CLI) | payer MEDICARE, MEDICAID ==
[2019-04-13 17:27] LABS: BASOPHILS % (AUTO) 0.6 %; EOSINOPHILS # (AUTO) 0.3 10^3/uL (0.0-0.7); EOSINOPHILS % (AUTO) 4.5 %; HGB - HEMOGLOBIN 12.7 g/dL (14.0-18.0); LYMPHOCYTES # (AUTO) 1.2 10^3/uL (1.5-3.5); LYMPHOCYTES % (AUTO) 16.6 %; MEAN CORPUSCULAR HGB CONC 32.2 g/dL (32.0-36.0); MEAN CORPUSCULAR VOLUME 93.4 fL (80.0-94.0); MEAN PLATELET VOLUME 10.7 fL (7.4-11.4); MONOCYTES # (AUTO) 0.5 10^3/uL (0.0-1.0); MONOCYTES % (AUTO) 7.2 %; NEUTROPHILS # (AUTO) 4.9 10^3/uL (1.5-6.6); PLT - PLATELET COUNT 213 10^3/uL (130-450); RED BLOOD COUNT 4.23 10^6/uL (4.70-6.10); RED CELL DISTRIBUTION WIDTH 14.4 % (12.0-15.0); WHITE BLOOD COUNT 6.9 x10^3/uL (4.8-10.8)
[2019-04-13 17:39] LABS: HB2 TOTAL 12.7 g/dL; HEMOGLOBIN A1C 0.61 g/dL; HEMOGLOBIN A1C % 6.5 % (4.6-6.2)
[2019-04-13 17:50] LABS: CREATININE,URINE 81.8 mg/dL; MICROALBUM/CREATININE RATIO,UR 57.5 ug/mg (<30.0); MICROALBUMIN,URINE 4.7 mg/dL (0-300.0)
[2019-04-13 17:51] LABS: BUN - BLOOD UREA NITROGEN 21 mg/dL (6-20); CARBON DIOXIDE - CO2 27 mmol/L (21-32); CHLORIDE 104 mmol/L (101-111); CHOLESTEROL 108 mg/dL; CREATININE 1.3 mg/dL (0.6-1.2); GFR - MDRD 54 (>89); GLUCOSE 121 mg/dL (70-100); HDL CHOLESTEROL 53 mg/dL; LDL CHOLESTEROL,CALCULATED 46 mg/dL; LDL/HDL RATIO 0.9 (<3.6); SODIUM 137 mmol/L (135-145); VLDL CHOLESTEROL 9 mg/dL
== END 2019-04-13 09:20 | disposition home or self-care (01) ==
LOC: LAB.S 09:19
PROVIDERS: ATTEND Physician Assistant Medical
DX: E11.9 Type 2 diabetes mellitus without complications (principal); E78.5 Hyperlipidemia, unspecified; Z12.5 Encounter for screening for malignant neoplasm of prostate; D64.9 Anemia, unspecified
CPT/HCPCS: 36415; 80048; 80061; 82043; 82570; 83036; 85025; G0103; 83721; 84153

== ENCOUNTER 2020-06-18 10:49 | Outpatient (CLI) | payer MEDICARE, MEDICAID ==
[2020-06-18 19:11] LABS: CALCIUM 9.5 mg/dL (8.5-10.3); CREATININE 1.3 mg/dL (0.6-1.2)
[2020-06-18 20:11] LABS: CREATININE,URINE 82.7 mg/dL; MICROALBUM/CREATININE RATIO,UR 47.2 ug/mg (<30.0); MICROALBUMIN,URINE 3.9 mg/dL (0-300.0)
[2020-06-18 20:46] LABS: HEMOGLOBIN A1c% 6.5 % (4.27-6.07)
== END 2020-06-18 23:59 | disposition home or self-care (01) ==
LOC: LAB.WCP 10:49
PROVIDERS: ATTEND Family Medicine
DX: E11.9 Type 2 diabetes mellitus without complications (principal)
CPT/HCPCS: 36415; 80048; 82043; 82570; 83036

== ENCOUNTER 2020-12-11 08:00 | Outpatient (CLI) | payer MEDICARE, MEDICAID ==
[2020-12-11 14:32] LABS: BASOPHILS % (AUTO) 0.4 %; EOSINOPHILS # (AUTO) 0.3 10^3/uL (0.0-0.7); EOSINOPHILS % (AUTO) 4.7 %; HCT - HEMATOCRIT 40.9 % (42.0-52.0); HGB - HEMOGLOBIN 12.7 g/dL (14.0-18.0); LYMPHOCYTES # (AUTO) 1.3 10^3/uL (1.5-3.5); LYMPHOCYTES % (AUTO) 17.8 %; MEAN CORPUSCULAR HEMOGLOBIN 28.7 pg (27.0-31.0); MEAN CORPUSCULAR HGB CONC 31.1 g/dL (32.0-36.0); MEAN CORPUSCULAR VOLUME 92.5 fL (80.0-94.0); MEAN PLATELET VOLUME 10.2 fL (7.4-11.4); MONOCYTES # (AUTO) 0.5 10^3/uL (0.0-1.0); MONOCYTES % (AUTO) 6.7 %; NEUTROPHILS # (AUTO) 5.1 10^3/uL (1.5-6.6); PLT - PLATELET COUNT 235 10^3/uL (130-450); RED BLOOD COUNT 4.42 10^6/uL (4.70-6.10); RED CELL DISTRIBUTION WIDTH 14.5 % (12.0-15.0); WHITE BLOOD COUNT 7.3 x10^3/uL (4.8-10.8)
[2020-12-11 14:57] LABS: CHOL/HDL RATIO 2.3 (<5.0); CHOLESTEROL 121 mg/dL; HDL CHOLESTEROL 53 mg/dL; LDL CHOLESTEROL,CALCULATED 59 mg/dL; LDL/HDL RATIO 1.1 (<3.6); TRIGLYCERIDES 46 mg/dL; VLDL CHOLESTEROL 9 mg/dL
[2020-12-11 15:03] LABS: THYROID STIMULATING HORMONE 1.77 uIU/mL (0.34-5.60)
[2020-12-11 15:08] LABS: CREATININE,URINE 67.5 mg/dL; MICROALBUM/CREATININE RATIO,UR 115.6 ug/mg (<30.0); MICROALBUMIN,URINE 7.8 mg/dL (0-300.0)
[2020-12-11 16:47] LABS: ALBUMIN/GLOBULIN RATIO 1.3 (1.0-2.2); BILIRUBIN,TOTAL 0.4 mg/dL (0.2-1.0); CALCIUM 9.2 mg/dL (8.5-10.3); CREATININE 1.3 mg/dL (0.6-1.2); POTASSIUM 4.6 mmol/L (3.5-5.0)
[2020-12-11 16:59] LABS: ESTIMATED AVERAGE GLUCOSE 134 mg/dL (70-100); HEMOGLOBIN A1c% 6.3 % (4.27-6.07)
== END 2020-12-11 23:59 | disposition home or self-care (01) ==
LOC: LAB.WCP 08:00
PROVIDERS: ATTEND Family Medicine
DX: E11.9 Type 2 diabetes mellitus without complications (principal); E78.5 Hyperlipidemia, unspecified; I10 Essential (primary) hypertension; N40.0 Benign prostatic hyperplasia without lower urinary tract symptoms; J44.9 Chronic obstructive pulmonary disease, unspecified
CPT/HCPCS: 36415; 80053; 80061; 82043; 82570; 83036; 83721; 84153; 84443; 85025

== ENCOUNTER 2021-06-11 08:00 | Outpatient (CLI) | payer MEDICARE, MEDICAID ==
[2021-06-11 12:00] LABS: CREATININE,URINE 66.7 mg/dL
[2021-06-11 12:13] LABS: CALCIUM 9.1 mg/dL (8.5-10.3); CREATININE 1.2 mg/dL (0.6-1.2); POTASSIUM 4.3 mmol/L (3.5-5.0)
[2021-06-11 13:06] LABS: ESTIMATED AVERAGE GLUCOSE 131 mg/dL (70-100); HEMOGLOBIN A1c% 6.2 % (4.27-6.07)
== END 2021-06-11 23:59 ==
LOC: LAB.WCP 08:00
PROVIDERS: ATTEND Family Medicine
DX: E11.9 Type 2 diabetes mellitus without complications (principal); J44.9 Chronic obstructive pulmonary disease, unspecified; I10 Essential (primary) hypertension
CPT/HCPCS: 36415; 80048; 82043; 82570; 83036

== ENCOUNTER 2021-12-24 08:40 | Outpatient (CLI) | payer MEDICARE, MEDICAID ==
[2021-12-24 13:11] LABS: BASOPHILS % (AUTO) 0.3 %; EOSINOPHILS # (AUTO) 0.4 10^3/uL (0.0-0.7); EOSINOPHILS % (AUTO) 5.9 %; HCT - HEMATOCRIT 38.5 % (42.0-52.0); HGB - HEMOGLOBIN 12.2 g/dL (14.0-18.0); LYMPHOCYTES % (AUTO) 14.2 %; MEAN CORPUSCULAR HEMOGLOBIN 29.2 pg (27.0-31.0); MEAN CORPUSCULAR HGB CONC 31.7 g/dL (32.0-36.0); MEAN CORPUSCULAR VOLUME 92.1 fL (80.0-94.0); MEAN PLATELET VOLUME 10.4 fL (7.4-11.4); MONOCYTES # (AUTO) 0.5 10^3/uL (0.0-1.0); MONOCYTES % (AUTO) 7.6 %; NEUTROPHILS % (AUTO) 71.9 %; PLT - PLATELET COUNT 216 10^3/uL (130-450); RED BLOOD COUNT 4.18 10^6/uL (4.70-6.10)
[2021-12-24 13:27] LABS: ALBUMIN 3.9 g/dL (3.2-5.5); ALBUMIN/GLOBULIN RATIO 1.2 (1.0-2.2); ALKALINE PHOSPHATASE 62 IU/L (42-121); ALT ALANINE AMINOTRANSFERASE 15 IU/L (10-60); AST ASPARTATE AMINOTRANSFERASE 16 IU/L (10-42); BILIRUBIN,TOTAL 0.3 mg/dL (0.2-1.0); BUN - BLOOD UREA NITROGEN 23 mg/dL (6-20); CALCIUM 9.5 mg/dL (8.5-10.3); CARBON DIOXIDE - CO2 31 mmol/L (21-32); CHLORIDE 101 mmol/L (101-111); CHOL/HDL RATIO 2.1 (<5.0); CHOLESTEROL 114 mg/dL; CREATININE 1.4 mg/dL (0.6-1.2); GFR - MDRD 49 (>89); GLUCOSE 112 mg/dL (70-100); HDL CHOLESTEROL 55 mg/dL; POTASSIUM 4.6 mmol/L (3.5-5.0); SODIUM 138 mmol/L (135-145); TOTAL PROTEIN 7.1 g/dL (6.7-8.2); TRIGLYCERIDES 23 mg/dL
[2021-12-24 13:38] LABS: CREATININE,URINE 67.7 mg/dL; MICROALBUM/CREATININE RATIO,UR 118.2 ug/mg (<30.0); THYROID STIMULATING HORMONE 2.28 uIU/mL (0.34-5.60)
[2021-12-24 14:41] LABS: ESTIMATED AVERAGE GLUCOSE 134 mg/dL (70-100); HEMOGLOBIN A1c% 6.3 % (4.27-6.07)
== END 2021-12-24 08:41 | disposition home or self-care (01) ==
LOC: LAB.N 08:40
PROVIDERS: ATTEND Family Medicine
DX: I10 Essential (primary) hypertension (principal); K59.00 Constipation, unspecified; D64.9 Anemia, unspecified; E11.9 Type 2 diabetes mellitus without complications; J44.9 Chronic obstructive pulmonary disease, unspecified; E78.5 Hyperlipidemia, unspecified
CPT/HCPCS: 36415; 80053; 80061; 82043; 82570; 83036; 83721; 84443; 85025

== ENCOUNTER 2022-06-19 09:17 | Outpatient (CLI) | payer MEDICARE, MEDICAID ==
[2022-06-19 12:06] LABS: BASOPHILS % (AUTO) 0.4 %; EOSINOPHILS # (AUTO) 0.4 10^3/uL (0.0-0.7); EOSINOPHILS % (AUTO) 6.2 %; HCT - HEMATOCRIT 38.7 % (42.0-52.0); HGB - HEMOGLOBIN 12.2 g/dL (14.0-18.0); LYMPHOCYTES # (AUTO) 1.2 10^3/uL (1.5-3.5); LYMPHOCYTES % (AUTO) 18.1 %; MEAN CORPUSCULAR HEMOGLOBIN 29.1 pg (27.0-31.0); MEAN CORPUSCULAR HGB CONC 31.5 g/dL (32.0-36.0); MEAN CORPUSCULAR VOLUME 92.4 fL (80.0-94.0); MEAN PLATELET VOLUME 10.2 fL (7.4-11.4); MONOCYTES # (AUTO) 0.5 10^3/uL (0.0-1.0); NEUTROPHILS # (AUTO) 4.6 10^3/uL (1.5-6.6); PLT - PLATELET COUNT 219 10^3/uL (130-450); RED BLOOD COUNT 4.19 10^6/uL (4.70-6.10); RED CELL DISTRIBUTION WIDTH 15.4 % (12.0-15.0); WHITE BLOOD COUNT 6.8 x10^3/uL (4.8-10.8)
[2022-06-19 12:33] LABS: THYROID STIMULATING HORMONE 1.96 uIU/mL (0.34-5.60)
[2022-06-19 12:34] LABS: ALBUMIN 4.1 g/dL (3.2-5.5); ALBUMIN/GLOBULIN RATIO 1.2 (1.0-2.2); BILIRUBIN,TOTAL 0.6 mg/dL (0.2-1.0); CALCIUM 9.7 mg/dL (8.5-10.3); CREATININE 1.4 mg/dL (0.6-1.2); POTASSIUM 4.7 mmol/L (3.5-5.0); TOTAL PROTEIN 7.4 g/dL (6.7-8.2)
[2022-06-19 13:01] LABS: ESTIMATED AVERAGE GLUCOSE 128 mg/dL (70-100); HEMOGLOBIN A1c% 6.1 % (4.27-6.07)
== END 2022-06-19 09:18 | disposition home or self-care (01) ==
LOC: LAB.N 09:17
PROVIDERS: ATTEND Family Medicine
DX: I10 Essential (primary) hypertension (principal); N40.0 Benign prostatic hyperplasia without lower urinary tract symptoms; Z12.5 Encounter for screening for malignant neoplasm of prostate; E11.9 Type 2 diabetes mellitus without complications; J44.9 Chronic obstructive pulmonary disease, unspecified; R97.20 Elevated prostate specific antigen [PSA]
CPT/HCPCS: 36415; 80053; 83036; 84443; 85025; G0103; 84153

== ENCOUNTER 2022-07-24 06:14 | Outpatient (CLI) | payer MEDICARE, MEDICAID ==
[2022-07-24] MEDS ORDERED: iohexoL-300 100 ML VIAL ONE ×2 (06:28→06:36)
[2022-07-24 06:42] LABS: CREATININE 1.5 mg/dL (0.6-1.2)
[2022-07-24] MEDS ORDERED: iohexoL-300 100 ML VIAL IVP ONE (07:20)
--- NOTE | 2022-07-24 10:29 | CT Report ---
PROCEDURE: ABDOMEN W/WO INDICATIONS: ABN RESULTS ON IMAGING STUDY CONTRAST: 140ml Omnipaque 300 TECHNIQUE: 3 phase scanning was performed. After the administration of intravenous contrast, 5 mm thick section s acquired from the diaphragm to the symphysis. 5 mm coronal and sagittal reformats were acquired. For radiation dose reduction, the following was used: automated exposure control, adjustment of mA a nd/or kV according to patient size. COMPARISON: Renal ultrasound of 01/22/2022. FINDINGS: Image quality: Excellent. Lung bases: No pleural effusion. Heart size is normal. Liver is normal in size. No focal lesion. Gallbladder is not distended. No calcified gallstones. Pedrito iary system is non dilated. There is a lobulated cyst in the body the pancreas measuring approximatel y 2.8 x 2.5 cm, (12/25). No pancreatic ductal dilatation is seen. No peripancreatic fluid collection. Spleen is normal in size and enhancement. No adrenal nodules. Right kidney is atrophic. No kidney st ones. No hydronephrosis. The upper urinary tract in the abdomen is fairly opacified. No filling defec t is seen. No solid renal mass. Punctate left renal cortical hypodensities. Pelvis is outside the fie ld of view on this exam. Nodes and vessels: No retroperitoneal or mesenteric adenopathy by size criteria. Mild ectasia of the abdominal aorta measuring up to 2.5 cm. Circumferential calcified atherosclerotic plaque. Bowel and peritoneum: Stomach is not distended. No small bowel obstruction. There are a few prominent loops of small bowel in the left abdomen. Diverticulosis. Appendix is partially visualized and is no t distended. No free fluid or air. Bones: No suspicious bony lesions. No vertebral body compression fractures. Miscellaneous: Tiny umbilical hernia. IMPRESSION: 1. No kidney stones. No hydronephrosis. 2. Chronic atrophic right kidney. 3. No solid renal mass. No filling defect in the visualized portions of the upper ureters. Pelvis is outside the field of view on this exam. 4. 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 This could be further character ized with MRI pancreas with IV contrast. Reviewed by: Alex Hernandez MD on 07/24/2022 10:28 AM [facility] Approved by: Alex Hernandez MD on 07/24/2022 10:28 AM [facility] Station ID: [id number]
== END 2022-07-24 06:15 | disposition home or self-care (01) ==
LOC: LAB 06:14
PROVIDERS: ATTEND Urology
DX: R93.89 Abnormal findings on diagnostic imaging of other specified body structures (principal); N26.1 Atrophy of kidney (terminal); K86.2 Cyst of pancreas
CPT/HCPCS: 36415; 74170; 82565; Q9967

== ENCOUNTER 2023-02-13 09:05 | Outpatient (CLI) | payer MEDICARE, MEDICAID ==
[2023-02-13 12:55] LABS: BASOPHILS % (AUTO) 0.6 %; EOSINOPHILS # (AUTO) 0.4 10^3/uL (0.0-0.7); EOSINOPHILS % (AUTO) 5.5 %; HCT - HEMATOCRIT 38.5 % (42.0-52.0); LYMPHOCYTES # (AUTO) 1.2 10^3/uL (1.5-3.5); LYMPHOCYTES % (AUTO) 16.9 %; MEAN CORPUSCULAR HEMOGLOBIN 29.2 pg (27.0-31.0); MEAN CORPUSCULAR HGB CONC 31.2 g/dL (32.0-36.0); MEAN CORPUSCULAR VOLUME 93.7 fL (80.0-94.0); MEAN PLATELET VOLUME 10.6 fL (7.4-11.4); MONOCYTES # (AUTO) 0.5 10^3/uL (0.0-1.0); MONOCYTES % (AUTO) 7.2 %; NEUTROPHILS % (AUTO) 69.7 %; PLT - PLATELET COUNT 238 10^3/uL (130-450); RED BLOOD COUNT 4.11 10^6/uL (4.70-6.10); RED CELL DISTRIBUTION WIDTH 14.6 % (12.0-15.0); WHITE BLOOD COUNT 7.2 x10^3/uL (4.8-10.8)
[2023-02-13 13:13] LABS: ESTIMATED AVERAGE GLUCOSE 128 mg/dL (70-100); HEMOGLOBIN A1c% 6.1 % (4.27-6.07)
[2023-02-13 13:26] LABS: ALBUMIN 4.2 g/dL (3.2-5.5); ALBUMIN/GLOBULIN RATIO 1.5 (1.0-2.2); ALKALINE PHOSPHATASE 64 IU/L (42-121); ALT ALANINE AMINOTRANSFERASE 13 IU/L (10-60); AST ASPARTATE AMINOTRANSFERASE 14 IU/L (10-42); BILIRUBIN,TOTAL 0.4 mg/dL (0.2-1.0); BUN - BLOOD UREA NITROGEN 28 mg/dL (6-20); CALCIUM 9.7 mg/dL (8.5-10.3); CARBON DIOXIDE - CO2 30 mmol/L (21-32); CHLORIDE 102 mmol/L (101-111); CHOL/HDL RATIO 2.2 (<5.0); CHOLESTEROL 127 mg/dL; CREATININE 1.4 mg/dL (0.6-1.3); GFR - MDRD 49 (>89); GLUCOSE 125 mg/dL (74-104); HDL CHOLESTEROL 59 mg/dL; LDL CHOLESTEROL,CALCULATED 54 mg/dL; LDL/HDL RATIO 0.9 (<3.6); POTASSIUM 4.4 mmol/L (3.5-4.5); SODIUM 138 mmol/L (135-145); TRIGLYCERIDES 69 mg/dL (48-352); VLDL CHOLESTEROL 14 mg/dL
[2023-02-13 13:33] LABS: CREATININE,URINE 44.6 mg/dL; MICROALBUM/CREATININE RATIO,UR 145.7 ug/mg (<30.0); MICROALBUMIN,URINE 6.5 mg/dL
[2023-02-13 13:36] LABS: THYROID STIMULATING HORMONE 2.19 uIU/mL (0.34-5.60)
== END 2023-02-13 09:06 | disposition home or self-care (01) ==
LOC: LAB.N 09:05
PROVIDERS: ATTEND Family Medicine
DX: I10 Essential (primary) hypertension (principal); R58 Hemorrhage, not elsewhere classified; E11.9 Type 2 diabetes mellitus without complications; J44.9 Chronic obstructive pulmonary disease, unspecified; E78.5 Hyperlipidemia, unspecified; N40.0 Benign prostatic hyperplasia without lower urinary tract symptoms
CPT/HCPCS: 36415; 80053; 80061; 82043; 82570; 83036; 83721; 84153; 84443; 85025

== ENCOUNTER 2023-03-10 08:15 | Outpatient (CLI) | payer MEDICARE, MEDICAID ==
[~2023-03-10 08:15] MED LIST: GADOTERATE MEGLUMINE 10 MMOL/20 ML VIAL ONE
[2023-03-10] MEDS ORDERED: GADOTERATE MEGLUMINE 10 MMOL/20 ML VIAL IVP ONE (13:21)
--- NOTE | 2023-03-10 18:58 | MRI Report ---
PROCEDURE: ABDOMEN W/WO INDICATIONS: MASS OF PANCREAS CONTRAST: clariscan 17ml TECHNIQUE: Coronal ultra fast SE, axial 2D spoiled GE in- and [id number]; axial breath-hold T2 fast SE. Dynam ic axial ultra fast GE during the administration of contrast; post-contrast coronal ultra fast GE or 2D spoiled GE with fat saturation from the hepatic dome to the iliac crests. Optional diffusion weig hted imaging and ADC may be performed. COMPARISON: CT 07/24/2022 FINDINGS: Image quality: Excellent. Lung bases and heart: Unremarkable. Liver: No solid mass. Gallbladder and biliary tree: No radiopaque stones or wall thickening. No biliary dilation. Spleen: No splenomegaly. Pancreas: Cystic mass in the pancreatic body without definite connection to the pancreatic duct measu ring approximately 3.2 x 3.0 cm (series 6, image 18), previously 2.6 x 3.3 cm. The mass contains thic kened internal septations but no nodules. Adrenals: No adrenal nodule. Kidneys and ureters: No hydronephrosis. No renal cystic lesion which requires follow up. No solid mas s. The right kidney is relatively atrophic. Bowel and peritoneum: No bowel distension. No pathologic free fluid. Lymph nodes: No central or retroperitoneal adenopathy. Vessels: No infrarenal aortic aneurysm. Bones: No aggressive osseous abnormality. Other: No significant ventral hernia. 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 While findings probably represent a side branch abdomen, other mucinous madhavi gnancies are not excluded. Given size, recommend GI referral for further management. Reviewed by: Yaniv Galloway on 03/10/2023 6:56 PM PDT Approved by: Yaniv Galloway on 03/10/2023 6:56 PM PDT Station ID: [id number]
== END 2023-03-10 08:16 | disposition home or self-care (01) ==
LOC: DI 08:15
PROVIDERS: ATTEND Family Medicine
DX: K86.2 Cyst of pancreas (principal)
CPT/HCPCS: 74183; A9575

== ENCOUNTER 2023-09-02 08:27 | Outpatient (CLI) | payer MEDICARE, MEDICAID ==
[2023-09-02 12:14] LABS: ESTIMATED AVERAGE GLUCOSE 131 mg/dL (70-100); HEMOGLOBIN A1c% 6.2 % (4.27-6.07)
[2023-09-02 12:42] LABS: CALCIUM 10.1 mg/dL (8.5-10.3); CREATININE 1.5 mg/dL (0.6-1.3); POTASSIUM 4.8 mmol/L (3.5-4.5)
== END 2023-09-02 08:28 | disposition home or self-care (01) ==
LOC: LAB.N 08:27
PROVIDERS: ATTEND Family Medicine
DX: I10 Essential (primary) hypertension (principal); K86.89 Other specified diseases of pancreas; D12.6 Benign neoplasm of colon, unspecified; D30.3 Benign neoplasm of bladder; N40.0 Benign prostatic hyperplasia without lower urinary tract symptoms; D64.9 Anemia, unspecified; E11.9 Type 2 diabetes mellitus without complications; J44.9 Chronic obstructive pulmonary disease, unspecified
CPT/HCPCS: 36415; 80048; 83036

== ENCOUNTER 2023-11-12 08:04 | Outpatient (CLI) | payer MEDICARE, MEDICAID | END 2023-11-12 08:05 | disposition home or self-care (01) | LOC: DI 08:04 | PROVIDERS: ATTEND Family Medicine | DX: I08.0 Rheumatic disorders of both mitral and aortic valves (principal); I27.20 Pulmonary hypertension, unspecified; I77.810 Thoracic aortic ectasia | CPT/HCPCS: 93307 ==

== ENCOUNTER 2024-01-26 09:40 | Outpatient (CLI) | payer MEDICARE, MEDICAID ==
[2024-01-26 18:47] LABS: CALCIUM 9.1 mg/dL (8.5-10.3); CREATININE 1.5 mg/dL (0.6-1.3)
[2024-01-26 21:34] LABS: ESTIMATED AVERAGE GLUCOSE 126 mg/dL (70-100)
== END 2024-01-26 09:41 | disposition home or self-care (01) ==
LOC: LAB.N 09:40
PROVIDERS: ATTEND Family Medicine
DX: E11.9 Type 2 diabetes mellitus without complications (principal)
CPT/HCPCS: 36415; 80048; 83036